=== PATIENT | male | born 1975 | race Caucasian/White ===

== ENCOUNTER → 2016-11-21 | Outpatient (CLI) | payer BC ==
[~2016-11-21] MED LIST: COSYNTROPIN 0.25 MG VIAL IVP ONE; SODIUM CHLORIDE 0.9% 250 ML in EMPTY BAG 1 BAG IV PRN; SODIUM CHLORIDE 0.9% 500 ML in EMPTY BAG 1 BAG IV PRN
[2016-11-21 08:27] VITALS: BP 128/60; PULSE 73; RESP 16; TEMP 98.8
== END | disposition home or self-care (01) ==
LOC: PROCWHC3 08:15
PROVIDERS: ATTEND Internal Medicine Endocrinology, Diabetes & Metabolism
DX: D35.2 Benign neoplasm of pituitary gland (principal)
CPT/HCPCS: 82533; 82024; 96374; 36415; J0834

== ENCOUNTER → 2017-05-20 | Outpatient (CLI) | payer BC ==
[2017-05-20 09:01] LABS: Prolactin 3.9 ng/mL (3.7-17.9)
== END | disposition home or self-care (01) ==
LOC: LABMAIN 07:48
PROVIDERS: ATTEND Internal Medicine Endocrinology, Diabetes & Metabolism
DX: D35.2 Benign neoplasm of pituitary gland (principal)
CPT/HCPCS: 36415; 82024; 82533; 84146; 84403

== ENCOUNTER 2022-03-14 05:39 | Emergency (ER) | payer BC ==
[2022-03-14 05:48] VITALS: RESP 18
[2022-03-14 06:09] LABS: Basophils % (A) 0 %; Eosinophils # (A) 0.1 k/uL (0-0.7); Eosinophils % (A) 2 %; HCT 51.8 % (39.0-53.0); HGB 18.2 gm/dL (13.0-17.5); Lymphocytes % (A) 20 %; MCH 31.1 pg (25.0-35.0); MCHC 35.1 g/dL (31.0-37.0); MCV 88.6 fL (80.0-100.0); Mean Platelet Volume 7.1; Monocytes # (A) 0.4 k/uL (0-1.0); Monocytes % (A) 7 %; Neutrophils # (A) 3.6 k/uL (1.3-7.7); Neutrophils % (A) 69 %; Platelet Count 223 k/uL (150-450); RBC 5.85 m/uL (4.30-5.90); WBC 5.2 k/uL (3.8-10.6)
[2022-03-14 06:17] LABS: INR 1.1 (<1.2); Partial Thromboplastin Time 25.4 sec (22.0-30.0); Prothrombin Time 11.3 sec (9.0-12.0)
--- NOTE | 2022-03-14 06:44 | ED ---
General Adult HPI - General Chief complaint: Syncope Stated complaint: Near syncope Time Seen by Provider: 03/14/22 06:13 Source: patient, EMS, RN notes reviewed Mode of arrival: EMS Limitations: no limitations - History of Present Illness Initial comments: This is a 46-year-old male presents emergency from via EMS with chief complaint dizziness, near syncope. Patient states he had an episode last Friday and one today approximately same time. Patient states he was driving started becoming very lightheaded, dizzy symptoms like this in a pass out. All over. Patient states symptoms seemed to last a long period of time isn't limited to headache, blurred vision or any focal weakness at this time no chest pain shortness of breath he states he was nausea without vomiting. 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 Patient denies any current complaints of symptoms have resolved - Related Data Home Medications Medication Instructions Recorded Confirmed Cabergoline 0.25 mg PO SUWE 03/14/22 03/14/22 Allergies Allergy/AdvReac Type Severity Reaction Status Date / Time No Known Allergies Allergy Verified 03/14/22 06:53 Review of Systems ROS Statement: Those systems with pertinent positive or pertinent negative responses have been documented in the HPI. ROS Other: All systems not noted in ROS Statement are negative. Past Medical History Past Medical History: GERD/Reflux Additional Past Medical History / Comment(s): IRREGULAR HEART BEAT WHEN CHILD, UTI History of Any Multi-Drug Resistant Organisms: None Reported Past Surgical History: Adenoidectomy, Tonsillectomy Additional Past Surgical History / Comment(s): cyst on the neck, TUBES IN EARS Past Anesthesia/Blood Transfusion Reactions: Motion Sickness Past Psychological History: No Psychological Hx Reported Smoking Status: Never smoker Past Alcohol Use History: Rare Past Drug Use History: None Reported General Exam General appearance: alert, in no apparent distress Head exam: Present: atraumatic, normocephalic, normal inspection Eye exam: Present: normal appearance, PERRL, EOMI. Absent: scleral icterus, conjunctival injection, periorbital swelling ENT exam: Present: normal exam, mucous membranes moist Neck exam: Present: normal inspection, full ROM. Absent: tenderness, meningismu s, lymphadenopathy Respiratory exam: Present: normal lung sounds bilaterally. Absent: respiratory distress, wheezes, rales, rhonchi, stridor Cardiovascular Exam: Present: regular rate, normal rhythm, normal heart sounds. Absent: systolic murmur, diastolic murmur, rubs, gallop, clicks Extremities exam: Present: normal inspection, full ROM. Absent: tenderness Back exam: Present: full ROM. Absent: tenderness Neurological exam: Present: alert, oriented X3, CN II-XII intact, reflexes normal, other (Finger to nose intact). Absent: motor sensory deficit Skin exam: Present: warm, dry, intact, normal color. Absent: rash Course Vital Signs 03/14/22 05:41 Temperature 98.4 F Pulse Rate 74 Respiratory 18 Rate Blood Pressure 110/86 O2 Sat by Pulse 99 Oximetry EKG Findings - EKG Comments: EKG Findings:: EKG performed at 5:45 sinus rhythm with a rate of 72 SD 165 QRS 83 QT/ QTC 371/395 Medical Decision Making - Medical Decision Making Patient had episode of dizziness, near syncope. Patient has seen PCP, neurology evaluated from with no specific findings. Patient is a symptomatically this time. Patient will be discharged with follow-up and return parameters were discussed. - Lab Data Result diagrams: 03/14/22 06:00 03/14/22 06:00 Lab Results 03/14/22 03/14/22 03/14/22 Range/Units 06:00 06:00 06:00 WBC 5.2 (3.8-10.6) k/uL RBC 5.85 (4.30-5.90) m/uL Hgb 18.2 H (13.0-17.5) gm/dL Hct 51.8 (39.0-53.0) % MCV 88.6 (80.0-100.0) fL MCH 31.1 (25.0-35.0) pg MCHC 35.1 (31.0-37.0) g/dL RDW 13.0 (11.5-15.5) % Plt Count 223 (150-450) k/uL MPV 7.1 Neutrophils % 69 % Lymphocytes % 20 % Monocytes % 7 % Eosinophils % 2 % Basophils % 0 % Neutrophils # 3.6 (1.3-7.7) k/uL Lymphocytes # 1.0 (1.0-4.8) k/uL Monocytes # 0.4 (0-1.0) k/uL Eosinophils # 0.1 (0-0.7) k/uL Basophils # 0.0 (0-0.2) k/uL PT 11.3 (9.0-12.0) sec INR 1.1 (<1.2) APTT 25.4 (22.0-30.0) sec Sodium 139 (137-145) mmol/L Potassium 4.4 (3.5-5.1) mmol/L Chloride 99 (98-107) mmol/L Carbon Dioxide 31 H (22-30) mmol/L Anion Gap 9 mmol/L BUN 15 (9-20) mg/dL Creatinine 1.21 (0.66-1.25) mg/dL Est GFR (CKD-EPI)AfAm 83 (>60 ml/min/1.73 sqM) Est GFR (CKD-EPI)NonAf 72 (>60 ml/min/1.73 sqM) Glucose 121 H (74-99) mg/dL Calcium 9.4 (8.4-10.2) mg/dL Total Bilirubin 1.1 (0.2-1.3) mg/dL AST 31 (17-59) U/L ALT 27 (4-49) U/L Alkaline Phosphatase 36 L (38-126) U/L Troponin I (0.000-0.034) ng/mL Total Protein 7.6 (6.3-8.2) g/dL Albumin 4.5 (3.5-5.0) g/dL 03/14/22 Range/Units 06:00 WBC (3.8-10.6) k/uL RBC (4.30-5.90) m/uL Hgb (13.0-17.5) gm/dL Hct (39.0-53.0) % MCV (80.0-100.0) fL MCH (25.0-35.0) pg MCHC (31.0-37.0) g/dL RDW (11.5-15.5) % Plt Count (150-450) k/uL MPV Neutrophils % % Lymphocytes % % Monocytes % % Eosinophils % % Basophils % % Neutrophils # (1.3-7.7) k/uL Lymphocytes # (1.0-4.8) k/uL Monocytes # (0-1.0) k/uL Eosinophils # (0-0.7) k/uL Basophils # (0-0.2) k/uL PT (9.0-12.0) sec INR (<1.2) APTT (22.0-30.0) sec Sodium (137-145) mmol/L Potassium (3.5-5.1) mmol/L Chloride (98-107) mmol/L Carbon Dioxide (22-30) mmol/L Anion Gap mmol/L BUN (9-20) mg/dL Creatinine (0.66-1.25) mg/dL Est GFR (CKD-EPI)AfAm (>60 ml/min/1.73 sqM) Est GFR (CKD-EPI)NonAf (>60 ml/min/1.73 sqM) Glucose (74-99) mg/dL Calcium (8.4-10.2) mg/dL Total Bilirubin (0.2-1.3) mg/dL AST (17-59) U/L ALT (4-49) U/L Alkaline Phosphatase (38-126) U/L Troponin I <0.012 (0.000-0.034) ng/mL Total Protein (6.3-8.2) g/dL Albumin (3.5-5.0) g/dL Disposition Clinical Impression: Near syncope, Dizziness Disposition: HOME SELF-CARE Condition: Stable Instructions (If sedation given, give patient instructions): Near Syncope (ED) Additional Instructions: Please return to the Emergency Department if symptoms worsen or any other concerns. Is patient prescribed a controlled substance at d/c from ED?: No Referrals: Armen Langford MD [Primary Care Provider] - 1-2 days Time of Disposition: 07:45
[2022-03-14 07:03] LABS: Albumin 4.5 g/dL (3.5-5.0); Calcium 9.4 mg/dL (8.4-10.2); Potassium 4.4 mmol/L (3.5-5.1); Total Bilirubin 1.1 mg/dL (0.2-1.3); Total Protein 7.6 g/dL (6.3-8.2)
[2022-03-14 08:05] VITALS: BP 119/91; PULSE 65; TEMP 97.9
== END 2022-03-14 08:05 | disposition home or self-care (01) ==
LOC: EC 05:39
DX: R55 Syncope and collapse (principal); R42 Dizziness and giddiness; K21.9 Gastro-esophageal reflux disease without esophagitis; Z87.442 Personal history of urinary calculi
CPT/HCPCS: 36415; 80053; 84484; 85025; 85610; 85730; 93005; 99284

== ENCOUNTER 2022-03-14 22:36 | Emergency (ER) | payer BC ==
[2022-03-14 23:52] VITALS: TEMP 97.7
[2022-03-15 00:30] LABS: Basophils % (A) 0 %; Eosinophils # (A) 0.1 k/uL (0-0.7); Eosinophils % (A) 2 %; HCT 54.4 % (39.0-53.0); HGB 18.3 gm/dL (13.0-17.5); Lymphocytes # (A) 1.2 k/uL (1.0-4.8); Lymphocytes % (A) 16 %; MCH 29.7 pg (25.0-35.0); MCHC 33.6 g/dL (31.0-37.0); MCV 88.5 fL (80.0-100.0); Mean Platelet Volume 6.9; Monocytes # (A) 0.6 k/uL (0-1.0); Monocytes % (A) 7 %; Neutrophils # (A) 5.5 k/uL (1.3-7.7); Neutrophils % (A) 74 %; Platelet Count 217 k/uL (150-450); RBC 6.15 m/uL (4.30-5.90); RDW 12.3 % (11.5-15.5); WBC 7.5 k/uL (3.8-10.6)
--- NOTE | 2022-03-15 00:37 | CT ---
EXAMINATION TYPE: CT brain wo con DATE OF EXAM: 03/15/2022 COMPARISON: None HISTORY: Syncope, dizziness CT DLP: 1060.40 mGycm Automated exposure control for dose reduction was used. Ventricles have normal size. There is no mass effect or midline shift. There is no sign of intracrani al hemorrhage. Calvarium is intact. There is normal aeration of the mastoid sinuses. IMPRESSION: Negative unenhanced head CT scan.
[2022-03-15 00:40] LABS: ALT 28 U/L (4-49); AST 30 U/L (17-59); African American GFR (CKD) >90 (>60 ml/min/1.73 sqM); Alkaline Phosphatase 40 U/L (38-126); Anion Gap 9 mmol/L; Blood Urea Nitrogen 19 mg/dL (9-20); Calcium 9.8 mg/dL (8.4-10.2); Carbon Dioxide 25 mmol/L (22-30); Chloride 103 mmol/L (98-107); Glucose 115 mg/dL (74-99); Non-African American GFR(CKD) 82 (>60 ml/min/1.73 sqM); Potassium 4.1 mmol/L (3.5-5.1); Sodium 137 mmol/L (137-145); Total Bilirubin 0.9 mg/dL (0.2-1.3); Total Protein 8.3 g/dL (6.3-8.2)
[2022-03-15 00:52] LABS: INR 1.1 (<1.2); Prothrombin Time 11.6 sec (9.0-12.0)
[2022-03-15] MEDS ORDERED: ONDANSETRON 4 MG TAB PO STA (01:39)
[2022-03-15] MEDS ORDERED: MECLIZINE 12.5 MG TAB PO STA (01:39)
--- NOTE | 2022-03-15 01:39 | ED ---
Dizziness HPI - General Chief Complaint: Dizziness Stated Complaint: Dizziness/Blacked out Time Seen by Provider: 03/15/22 01:23 Source: patient Mode of arrival: ambulatory Limitations: no limitations - History of Present Illness Initial Comments: This is a 46-year-old male DF for evaluation of dizziness intermittent dizziness lightheadedness room spinning and off balance. Patient feels weak and his feet. Patient has no trauma no fevers no headache. No travel history or sick contacts. Patient has had prior history of dizziness and symptoms of this ongoing or recurrent for about 3-4 weeks now. Patient denies any other neurological complaints MD Complaint: dizziness, lightheadedness, near syncope -: hour(s) Timing: sudden onset Description: lightheadedness, near-syncope History of Same: Yes History of Trauma: No Severity: severe Improves With: nothing Worsens With: nothing Associated Symptoms: syncope, weakness - Related Data Home Medications Medication Instructions Recorded Confirmed Cabergoline 0.25 mg PO SUWE 03/14/22 03/14/22 Previous Rx's Medication Instructions Recorded Meclizine [Antivert] 25 mg PO TID #15 tab 03/15/22 Allergies Allergy/AdvReac Type Severity Reaction Status Date / Time No Known Allergies Allergy Verified 03/14/22 06:53 Review of Systems ROS Statement: Those systems with pertinent positive or pertinent negative responses have been documented in the HPI. ROS Other: All systems not noted in ROS Statement are negative. Past Medical History Past Medical History: GERD/Reflux Additional Past Medical History / Comment(s): IRREGULAR HEART BEAT WHEN CHILD, UTI History of Any Multi-Drug Resistant Organisms: None Reported Past Surgical History: Adenoidectomy, Tonsillectomy Additional Past Surgical History / Comment(s): cyst on the neck, TUBES IN EARS Past Anesthesia/Blood Transfusion Reactions: Motion Sickness Past Psychological History: No Psychological Hx Reported Smoking Status: Never smoker Past Alcohol Use History: Rare Past Drug Use History: None Reported General Exam Limitations: no limitations General appearance: alert, in no apparent distress Head exam: Present: atraumatic, normocephalic, normal inspection Eye exam: Present: normal appearance, PERRL, EOMI. Absent: scleral icterus, co njunctival injection, periorbital swelling ENT exam: Present: normal exam, mucous membranes moist Neck exam: Present: normal inspection. Absent: tenderness, meningismus, lymphadenopathy Respiratory exam: Present: normal lung sounds bilaterally. Absent: respiratory distress, wheezes, rales, rhonchi, stridor Cardiovascular Exam: Present: regular rate, normal rhythm, normal heart sounds. Absent: systolic murmur, diastolic murmur, rubs, gallop, clicks GI/Abdominal exam: Present: soft, normal bowel sounds. Absent: distended, tenderness, guarding, rebound, rigid Extremities exam: Present: normal inspection, full ROM, normal capillary refill. Absent: tenderness, pedal edema, joint swelling, calf tenderness Back exam: Present: normal inspection Neurological exam: Present: alert, oriented X3, CN II-XII intact Psychiatric exam: Present: normal affect, normal mood Skin exam: Present: warm, dry, intact, normal color. 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] Pulse Rate [ 84 Standing Work Order Detailer ] Pulse Rate [ 74 Supine Work Order Detailer] Respiratory 16 18 18 Rate Blood Pressure 133/94 128/92 Blood Pressure 137/95 [Right Arm Sitting] Blood Pressure 134/97 [Right Arm Standing] Blood Pressure 132/86 [Right Arm Supine] O2 Sat by Pulse 99 100 Oximetry - Reevaluation(s) Reevaluation #1: 03/15/22 Medical record is reviewed Patient symptoms are improving here in the emergency department Patient is informed of results and questions have been answered EKG Findings - EKG Comments: EKG Findings:: EKG is sinus rhythm 66 NH 169 QRS 90 QTC 402 Medical Decision Making - Medical Decision Making Auty 6 male with vertiginous symptoms. Patient vertiginous symptoms are improved here in the area is able to ambulate given medication and exercise for home. Patient can be discharged - Lab Data Result diagrams: 03/14/22 23:56 03/14/22 23:56 Lab Results 03/14/22 03/14/22 03/14/22 Range/Units 23:56 23:56 23:56 WBC 7.5 (3.8-10.6) k/uL RBC 6.15 H (4.30-5.90) m/uL Hgb 18.3 H (13.0-17.5) gm/dL Hct 54.4 H (39.0-53.0) % MCV 88.5 (80.0-100.0) fL MCH 29.7 (25.0-35.0) pg MCHC 33.6 (31.0-37.0) g/dL RDW 12.3 (11.5-15.5) % Plt Count 217 (150-450) k/uL MPV 6.9 Neutrophils % 74 % Lymphocytes % 16 % Monocytes % 7 % Eosinophils % 2 % Basophils % 0 % Neutrophils # 5.5 (1.3-7.7) k/uL Lymphocytes # 1.2 (1.0-4.8) k/uL Monocytes # 0.6 (0-1.0) k/uL Eosinophils # 0.1 (0-0.7) k/uL Basophils # 0.0 (0-0.2) k/uL PT 11.6 (9.0-12.0) sec INR 1.1 (<1.2) Sodium 137 (137-145) mmol/L Potassium 4.1 (3.5-5.1) mmol/L Chloride 103 (98-107) mmol/L Carbon Dioxide 25 (22-30) mmol/L Anion Gap 9 mmol/L BUN 19 (9-20) mg/dL Creatinine 1.09 (0.66-1.25) mg/dL Est GFR (CKD-EPI)AfAm >90 (>60 ml/min/1.73 sqM) Est GFR (CKD-EPI)NonAf 82 (>60 ml/min/1.73 sqM) Glucose 115 H (74-99) mg/dL Calcium 9.8 (8.4-10.2) mg/dL Total Bilirubin 0.9 (0.2-1.3) mg/dL AST 30 (17-59) U/L ALT 28 (4-49) U/L Alkaline Phosphatase 40 (38-126) U/L Troponin I (0.000-0.034) ng/mL Total Protein 8.3 H (6.3-8.2) g/dL Albumin 5.0 (3.5-5.0) g/dL 03/14/22 Range/Units 23:56 WBC (3.8-10.6) k/uL RBC (4.30-5.90) m/uL Hgb (13.0-17.5) gm/dL Hct (39.0-53.0) % MCV (80.0-100.0) fL MCH (25.0-35.0) pg MCHC (31.0-37.0) g/dL RDW (11.5-15.5) % Plt Count (150-450) k/uL MPV Neutrophils % % Lymphocytes % % Monocytes % % Eosinophils % % Basophils % % Neutrophils # (1.3-7.7) k/uL Lymphocytes # (1.0-4.8) k/uL Monocytes # (0-1.0) k/uL Eosinophils # (0-0.7) k/uL Basophils # (0-0.2) k/uL PT (9.0-12.0) sec INR (<1.2) Sodium (137-145) mmol/L Potassium (3.5-5.1) mmol/L Chloride (98-107) mmol/L Carbon Dioxide (22-30) mmol/L Anion Gap mmol/L BUN (9-20) mg/dL Creatinine (0.66-1.25) mg/dL Est GFR (CKD-EPI)AfAm (>60 ml/min/1.73 sqM) Est GFR (CKD-EPI)NonAf (>60 ml/min/1.73 sqM) Glucose (74-99) mg/dL Calcium (8.4-10.2) mg/dL Total Bilirubin (0.2-1.3) mg/dL AST (17-59) U/L ALT (4-49) U/L Alkaline Phosphatase (38-126) U/L Troponin I <0.012 (0.000-0.034) ng/mL Total Protein (6.3-8.2) g/dL Albumin (3.5-5.0) g/dL Disposition Clinical Impression: Benign paroxysmal positional vertigo, Dizziness Disposition: HOME SELF-CARE Condition: Good Instructions (If sedation given, give patient instructions): Vertigo (ED) Prescriptions: Meclizine [Antivert] 25 mg PO TID #15 tab Is patient prescribed a controlled substance at d/c from ED?: No Referrals: Armen Langford MD [Primary Care Provider] - 1-2 days
[2022-03-15 02:09] VITALS: RESP 18
[2022-03-15 02:10] VITALS: BP 128/92; PULSE 79
== END 2022-03-15 02:10 | disposition home or self-care (01) ==
LOC: EC 22:36
DX: H81.10 Benign paroxysmal vertigo, unspecified ear (principal)
CPT/HCPCS: 36415; 70450; 80053; 84484; 85025; 85610; 93005; 99285

== ENCOUNTER 2022-06-14 08:29 | Observation (INO) | payer BC ==
--- NOTE | 2022-06-14 08:42 | ED ---
General Adult HPI - General Stated complaint: Chest Pain Time Seen by Provider: 06/14/22 08:31 Source: patient, EMS Mode of arrival: EMS Limitations: no limitations - History of Present Illness Initial comments: Dictation was produced using [employer] dictation software. please excuse any grammatical, word or spelling errors. Chief Complaint: 46-year-old male presents emergency Department with episode of chest pain History of Present Illness: She is a 46-year-old male he denies any past medical history. He states that today he was sitting in his room when all of a sudden he developed chest pressure. He states he radiated to his left shoulder associated with diaphoresis and lightheadedness. Patient states he has had some unexplained lightheadedness over several occasions throughout the last several weeks. Patient denies any history of cardiac disease however does report strong family history on his maternal side there is states that several individuals on his mother's side has had cardiac disease. Patient called EMS was given aspirin and nitroglycerin with improvement of his symptoms. At the bedside he reports no symptoms. The ROS documented in this emergency department record has been reviewed and confirmed by me. Those systems with pertinent positive or negative responses have been documented in the HPI. All other systems are other negative and/or noncontributory. PHYSICAL EXAM: General Impression: Alert and oriented x3, not in acute distress HEENT: Normocephalic atraumatic, extra-ocular movements intact, pupils equal and reactive to light bilaterally, mucous membranes moist. Cardiovascular: Heart regular rate and rhythm Chest: Able to complete full sentences, no retractions, no tachypnea Abdomen: abdomen soft, non-tender, non-distended, no organomegaly Musculoskeletal: Pulses present and equal in all extremities, no peripheral edema Motor: no focal deficits noted Neurological: CN II-XII grossly intact, no focal motor or sensory deficits noted Skin: Intact with no visualized rashes Psych: Normal affect and mood ED course: 46-year-old male presents emergency department with chest pain concerning for acute coronary syndrome. He is a symptomatic at the bedside. Physical examination is benign. Patient does have high risk features. Vital signs upon arrival are within acceptable limits. EKG shows no signs of ischemia or infarction. Laboratory evaluation obtained. CBC, coag panel, metabolic panel is within acceptable limits. Abdominal labs negative. Troponin is normal. Chest x-ray is unremarkable though radiology makes comment of left hilar prominence which is likely related to radiology technique. Patient reverted bedside at 955 and found to be in stable medical condition. Given patient's presentation there is concern for acute coronary syndrome. Patient will be admitted with consultation to cardiology. EKG interpretation: Ventricular rate 67, sinus rhythm,. 160, QS 85, QTC 392. No FL prolongation, no QTC prolongation, no ST or T-wave changes noted. Isolated T-wave inversion in lead 3. No other acute findings. Overall this EKG is nonspecific. - Related Data Home Medications Medication Instructions Recorded Confirmed Cabergoline 0.25 mg PO DIRECTED 03/14/22 06/14/22 Aspirin EC [Ecotrin Low Dose] 81 mg PO DAILY 06/14/22 06/14/22 Butalb/APAP/Caff 50-325-40Mg 1 tab PO BID PRN 06/14/22 06/14/22 [Fioricet 50-325-40] Cetirizine HCl [Zyrtec] 10 mg PO DAILY 06/14/22 06/14/22 Allergies Allergy/AdvReac Type Severity Reaction Status Date / Time No Known Allergies Allergy Verified 06/14/22 09:42 Review of Systems ROS Statement: Those systems with pertinent positive or pertinent negative responses have been documented in the HPI. ROS Other: All systems not noted in ROS Statement are negative. Past Medical History Past Medical History: GERD/Reflux Additional Past Medical History / Comment(s): IRREGULAR HEART BEAT WHEN CHILD, UTI History of Any Multi-Drug Resistant Organisms: None Reported Past Surgical History: Adenoidectomy, Tonsillectomy Additional Past Surgical History / Comment(s): cyst on the neck, TUBES IN EARS Past Anesthesia/Blood Transfusion Reactions: Motion Sickness Past Psychological History: No Psychological Hx Reported Smoking Status: Never smoker Past Alcohol Use History: None Reported Past Drug Use History: None Reported General Exam Limitations: no limitations Course Vital Signs 06/14/22 06/14/22 08:30 09:50 Temperature 98.3 F Pulse Rate 70 73 Respiratory 16 15 Rate Blood Pressure 104/77 O2 Sat by Pulse 99 97 Oximetry Medical Decision Making - Lab Data Result diagrams: 06/14/22 08:43 06/14/22 08:43 Lab Results 06/14/22 06/14/22 06/14/22 Range/Units 08:43 08:43 08:43 WBC 3.6 L (3.8-10.6) k/uL RBC 4.95 (4.30-5.90) m/uL Hgb 15.3 (13.0-17.5) gm/dL Hct 44.0 (39.0-53.0) % MCV 89.0 (80.0-100.0) fL MCH 30.9 (25.0-35.0) pg MCHC 34.7 (31.0-37.0) g/dL RDW 12.8 (11.5-15.5) % Plt Count 204 (150-450) k/uL MPV 7.2 Neutrophils % 68 % Lymphocytes % 20 % Monocytes % 7 % Eosinophils % 2 % Basophils % 0 % Neutrophils # 2.5 (1.3-7.7) k/uL Lymphocytes # 0.7 L (1.0-4.8) k/uL Monocytes # 0.3 (0-1.0) k/uL Eosinophils # 0.1 (0-0.7) k/uL Basophils # 0.0 (0-0.2) k/uL PT 11.1 (9.0-12.0) sec INR 1.0 (<1.2) APTT 24.8 (22.0-30.0) sec Sodium 138 (137-145) mmol/L Potassium 4.3 (3.5-5.1) mmol/L Chloride 105 (98-107) mmol/L Carbon Dioxide 27 (22-30) mmol/L Anion Gap 6 mmol/L BUN 15 (9-20) mg/dL Creatinine 1.00 (0.66-1.25) mg/dL Est GFR (CKD-EPI)AfAm >90 (>60 ml/min/1.73 sqM) Est GFR (CKD-EPI)NonAf >90 (>60 ml/min/1.73 sqM) Glucose 120 H (74-99) mg/dL Calcium 8.4 (8.4-10.2) mg/dL Magnesium 2.0 (1.6-2.3) mg/dL Total Bilirubin 1.0 (0.2-1.3) mg/dL AST 30 (17-59) U/L ALT 24 (4-49) U/L Alkaline Phosphatase 33 L (38-126) U/L Troponin I (0.000-0.034) ng/mL Total Protein 6.6 (6.3-8.2) g/dL Albumin 4.1 (3.5-5.0) g/dL 06/14/22 Range/Units 08:43 WBC (3.8-10.6) k/uL RBC (4.30-5.90) m/uL Hgb (13.0-17.5) gm/dL Hct (39.0-53.0) % MCV (80.0-100.0) fL MCH (25.0-35.0) pg MCHC (31.0-37.0) g/dL RDW (11.5-15.5) % Plt Count (150-450) k/uL MPV Neutrophils % % Lymphocytes % % Monocytes % % Eosinophils % % Basophils % % Neutrophils # (1.3-7.7) k/uL Lymphocytes # (1.0-4.8) k/uL Monocytes # (0-1.0) k/uL Eosinophils # (0-0.7) k/uL Basophils # (0-0.2) k/uL PT (9.0-12.0) sec INR (<1.2) APTT (22.0-30.0) sec Sodium (137-145) mmol/L Potassium (3.5-5.1) mmol/L Chloride (98-107) mmol/L Carbon Dioxide (22-30) mmol/L Anion Gap mmol/L BUN (9-20) mg/dL Creatinine (0.66-1.25) mg/dL Est GFR (CKD-EPI)AfAm (>60 ml/min/1.73 sqM) Est GFR (CKD-EPI)NonAf (>60 ml/min/1.73 sqM) Glucose (74-99) mg/dL Calcium (8.4-10.2) mg/dL Magnesium (1.6-2.3) mg/dL Total Bilirubin (0.2-1.3) mg/dL AST (17-59) U/L ALT (4-49) U/L Alkaline Phosphatase (38-126) U/L Troponin I <0.012 (0.000-0.034) ng/mL Total Protein (6.3-8.2) g/dL Albumin (3.5-5.0) g/dL Disposition Clinical Impression: Chest pain Disposition: ADMITTED IP TO THIS HOSP Condition: Fair Referrals: Armen Langford MD [Primary Care Provider] - 1-2 days Decision Time: 09:55
[2022-06-14 09:05] LABS: Basophils % (A) 0 %; Eosinophils # (A) 0.1 k/uL (0-0.7); Eosinophils % (A) 2 %; HGB 15.3 gm/dL (13.0-17.5); Lymphocytes # (A) 0.7 k/uL (1.0-4.8); Lymphocytes % (A) 20 %; MCH 30.9 pg (25.0-35.0); MCHC 34.7 g/dL (31.0-37.0); Mean Platelet Volume 7.2; Monocytes # (A) 0.3 k/uL (0-1.0); Monocytes % (A) 7 %; Neutrophils # (A) 2.5 k/uL (1.3-7.7); Neutrophils % (A) 68 %; Platelet Count 204 k/uL (150-450); RBC 4.95 m/uL (4.30-5.90); RDW 12.8 % (11.5-15.5); WBC 3.6 k/uL (3.8-10.6)
--- NOTE | 2022-06-14 09:08 | XR ---
EXAMINATION TYPE: XR chest 2V DATE OF EXAM: 06/14/2022 COMPARISON: NONE HISTORY: Chest pain TECHNIQUE: Frontal and lateral views of the chest are obtained. FINDINGS: There is no focal air space opacity, pleural effusion, or pneumothorax seen. The cardiac silhouette size is within normal limits. Patient is rotated. There is thoracic spondylosis. Mild prom inence of left hilum. The osseous structures are intact. IMPRESSION: Left hilar prominence may be related to technique, rotation. Consider follow-up.
[2022-06-14 09:15] LABS: ALT 24 U/L (4-49); African American GFR (CKD) >90 (>60 ml/min/1.73 sqM); Albumin 4.1 g/dL (3.5-5.0); Anion Gap 6 mmol/L; Blood Urea Nitrogen 15 mg/dL (9-20); Calcium 8.4 mg/dL (8.4-10.2); Carbon Dioxide 27 mmol/L (22-30); Chloride 105 mmol/L (98-107); Glucose 120 mg/dL (74-99); Non-African American GFR(CKD) >90 (>60 ml/min/1.73 sqM); Partial Thromboplastin Time 24.8 sec (22.0-30.0); Prothrombin Time 11.1 sec (9.0-12.0); Sodium 138 mmol/L (137-145); Total Protein 6.6 g/dL (6.3-8.2)
[2022-06-14 09:20] LABS: AST 30 U/L (17-59); Alkaline Phosphatase 33 U/L (38-126); Potassium 4.3 mmol/L (3.5-5.1)
[2022-06-14] MEDS ORDERED: NITROGLYCERIN SL TABS 0.4 MG TAB SUBLINGUAL PRN (09:52)
[2022-06-14] MEDS ORDERED: BUTALB/APAP/CAFF 50-325-40MG TAB PO PRN (12:42)
--- NOTE | 2022-06-14 12:44 | P.HPIM ---
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 Patient states that the pain was pressure-like and located in the middle of his chest with an intensity of 6 out of 10 and radiated across his chest. Patient states that the pain was associated with lightheadedness and diaphoresis. The pain continued until EMS c phoebe and gave him nitroglycerin after which his chest pain did improve. Patient currently complaining of some chest discomfort. In the ED patient had 2 troponins are negative and EKG showed no ischemic changes. Patient was admitted for chest pain evaluation and cardiology consult. Review of Systems 10 ROS reviewed and are negative except as noted in HPI Past Medical History Past Medical History: GERD/Reflux Additional Past Medical History / Comment(s): IRREGULAR HEART BEAT WHEN CHILD, UTI, pituitary cyst History of Any Multi-Drug Resistant Organisms: None Reported Past Surgical History: Adenoidectomy, Tonsillectomy Additional Past Surgical History / Comment(s): cyst on the neck, TUBES IN EARS, fatty cyst on right arm Past Anesthesia/Blood Transfusion Reactions: Motion Sickness Past Psychological History: No Psychological Hx Reported Additional Psychological History / Comment(s): PAST HX ANXIETY. The patient is and lives in the family home with his . 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 He still he has been a bit fatigued. He is denying any significant new changes of activity, such as new fitness activities. He has not been riding a bike. And has not been running. His is his only sexual partner. He is lifelong nonsmoker. Denies tobacco and alcohol use. Denies occasional drug use. No experience. He has no significant travel. There are 2 dogs in the home with them. He has no children, only exposures to the fifth graders he takes care of at school. In the past he was somewhat of an athlete playing basketball and baseball but it's been several years. Smoking Status: Never smoker Past Alcohol Use History: None Reported Past Drug Use History: None Reported Medications and Allergies Home Medications Medication Instructions Recorded Confirmed Type Cabergoline 0.25 mg PO DIRECTED 03/14/22 06/14/22 History Aspirin EC [Ecotrin Low Dose] 81 mg PO DAILY 06/14/22 06/14/22 History Butalb/APAP/Caff 50-325-40Mg 1 tab PO BID PRN 06/14/22 06/14/22 History [Fioricet 50-325-40] Cetirizine HCl [Zyrtec] 10 mg PO DAILY 06/14/22 06/14/22 History Allergies Allergy/AdvReac Type Severity Reaction Status Date / Time No Known Allergies Allergy Verified 06/14/22 09:42 Physical Exam Osteopathic Statement: *. No significant issues noted on an osteopathic structural exam other than those noted in the History and Physical/Consult. Vitals: Vital Signs Temp Pulse Pulse Resp BP BP Pulse Ox 06/14/22 10:50 97.8 F 70 16 101/72 98 06/14/22 09:50 73 15 104/77 97 06/14/22 08:30 98.3 F 70 16 99 Intake and Output 06/13/22 06/14/22 06/14/22 22:59 06:59 14:59 Other: Weight 79.379 kg Atypical chest pain -Troponin negative 2 -EKG with no ischemic changes -Resume aspirin -Check echocardiogram -Consult cardiology Suspect patient has a history of prolactinoma -Resume Cabergoline Suspect recent diagnosis of MS -Patient states that he follows up with a neurologist in the local community and recently completed a steroid course. DVT prophylaxis: Encourage early ambulation Results CBC & Chem 7: 06/14/22 08:43 06/14/22 08:43 Labs: Abnormal Lab Results - Last 24 Hours (Table) 06/14/22 06/14/22 Range/Units 08:43 08:43 WBC 3.6 L (3.8-10.6) k/uL Lymphocytes # 0.7 L (1.0-4.8) k/uL Glucose 120 H (74-99) mg/dL Alkaline Phosphatase 33 L (38-126) U/L Thrombosis Risk Factor Assmnt - Choose All That Apply Any of the Below Risk Factors Present?: No Other Risk Factors: No Other congenital or acquired thrombophilia - If yes, enter type in comment: No Thrombosis Risk Factor Assessment Level: Very Low Risk
[2022-06-14] MEDS ORDERED: ACETAMINOPHEN TAB 325 MG TAB PO PRN (21:53)
[2022-06-15 07:17] VITALS: RESP 18
--- NOTE | 2022-06-15 07:55 | CA ---
Transthoracic Echo Report Name: Joey Tan Age: 46 Gender: M : 1975 Exam Date: 06/14/2022 13:56 Exam Location: [facility] Ht (in): 68 Wt (lb): 175 Ordering Physician: Ruddy Colbert MD Attending/Referring Phys: Audit Mgr Mary Ann Carrion RDCS Procedure CPT: Indications: Chest Pain Cardiac Hx: Technical Quality: Fair Contrast 1: Total Dose (mL): Contrast 2: Total Dose (mL): MEASUREMENTS (Male / Female) Normal Values 2D ECHO LV Diastolic Diameter PLAX 4.1 cm 4.2 - 5.9 / 3.9 - 5.3 cm LV Systolic Diameter PLAX 2.3 cm IVS Diastolic Thickness 1.1 cm 0.6 - 1.0 / 0.6 - 0.9 cm LVPW Diastolic Thickness 1.1 cm 0.6 - 1.0 / 0.6 - 0.9 cm LV Relative Wall Thickness 0.5 RV Internal Dim ED PLAX 3.2 cm LA Volume 29.0 cm??? 18 - 58 / 22 - 52 cm??? M-MODE Aortic Root Diameter MM 2.6 cm LA Systolic Diameter MM 2.8 cm LA Ao Ratio MM 1.0 AV Cusp Separation MM 1.6 cm DOPPLER AV Peak Velocity 211.6 cm/s AV Peak Gradient 17.9 mmHg AV Mean Velocity 134.9 cm/s AV Mean Gradient 8.8 mmHg AV Velocity Time Integral 37.9 cm LVOT Peak Velocity 146.4 cm/s LVOT Peak Gradient 8.6 mmHg MV Area PHT 3.0 cm??? Mitral E Point Velocity 87.5 cm/s Mitral A Point Velocity 78.8 cm/s Mitral E to A Ratio 1.1 MV Deceleration Time 255.8 ms MV E' Velocity 10.9 cm/s Mitral E to MV E' Ratio 8.0 TR Peak Velocity 219.0 cm/s TR Peak Gradient 19.2 mmHg Right Ventricular Systolic Press 23.5 mmHg FINDINGS Left Ventricle Normal Left ventricular size, wall thickness, systolic function with no obvious regional wall motion abnormalities. Normal Left ventricular diastolic filling pattern. Left ventricular ejection fraction is estimated at 55-60 %. Right Ventricle Normal right ventricular size and function. Right ventricular systolic pressure within normal limits. Right Atrium Normal right atrial size. Left Atrium Normal left atrial size. No evidence for an atrial septal defect. Mitral Valve Structurally normal mitral valve. No mitral stenosis, regurgitation or prolapse. Aortic Valve Can not rule out bicuspid aortic valve. Borderline aortic stenosis, AV mean PG 9 mmHg. No aortic regurgitation. Tricuspid Valve Structurally normal tricuspid valve. Mild tricuspid regurgitation. Pulmonic Valve Trace pulmonic regurgitation. Pericardium No pericardial effusion. Aorta CONCLUSIONS Normal left ventricular ejection fraction 55-60% Likely bicuspid aortic valve with trace to mild aortic stenosis, no aortic regurgitation Mild tricuspid regurgitation No pericardial effusion Previewed by: Dr. Carson Parker DO (Electronically Signed) Final Date: 15 June 2022 07:54
[2022-06-15] MEDS ORDERED: SODIUM CHLORIDE 0.9% 1,000 ML IV SCH (08:45)
--- NOTE | 2022-06-15 08:45 | P.CRDCN ---
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 He has not been seen by freight loading supervisor previously. Unfortunately he has been having issues with feeling lightheaded and dizzy in the last few months. He states he is feeling very well previous to that however has been very limited not doing much of any exertion as he has been having constant issues with lightheadedness. He was evaluated over last 3 months however no significant reason for his lightheadedness. He states this can occur when he is sitting as well as when he is standing. He has been less active as he feels if he overdoes it he may get lightheaded however no clear correlation. He had a more significant episode of chest pain and palpitations last night which lasted for proximally 40 minutes and then resolved on its own. He did feel lightheaded with this episode. He was not doing anything out of the ordinary prior to it. He was diagnosed with bicuspid aortic valve as a child however has not had any follow-up in the last 20 years. He does have a strong family history of grandparents with CAD and bypass. 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 No association with diet or sugar levels. He has had a few episodes of lightheadedness while in the [facility] and monitor has shown only sinus rhythm. REVIEW OF SYSTEMS At the time of my exam: CONSTITUTIONAL: Denies fever or chills. CARDIOVASCULAR: +chest pain, +shortness of breath, no orthopnea, PND, + palpitations. RESPIRATORY: Denies cough. GASTROINTESTINAL: Denies abdominal pain, diarrhea, constipation, nausea or vomiting. MUSCULOSKELETAL: Denies myalgias. NEUROLOGIC: Denies numbness, tingling or weakness. ENDOCRINE: Denies fatigue, weight change, polydipsia or polyurina. GENITOURINARY: Denies burning, hematuria or urgency with micturation. HEMATOLOGIC: Denies history of anemia or bleeding. PHYSICAL EXAMINATION Vital signs reviewed. CONSTITUTIONAL: No apparent distress. HEENT: Head is normocephalic. Pupils are equal, round. Sclerae anicteric. Mucous membranes of the mouth are moist. No JVD. No carotid bruit. CHEST EXAMINATION: Lungs are clear to auscultation. No chest wall tenderness is noted on palpation or with deep breathing. HEART EXAMINATION: Regular rate and rhythm. S1, S2 heard. +2/6 systolic murmur, no gallops or rub. ABDOMEN: Soft, nontender. Positive bowel sounds. EXTREMITIES: 2+ peripheral pulses, no lower extremity edema and no calf tenderness. NEUROLOGIC EXAMINATION: Patient is awake, alert and oriented x3. ASSESSMENT 1. Atypical chest pain 1, troponins negative 3, acute coronary syndrome ruled out 2. Episodes of lightheadedness may be more related to blood pressure, rule out adrenal insufficiency with additional history of pituitary mass 3. 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 Bicuspid aortic stenosis, mild by transthoracic echo and on auscultation 5. Family history of CAD 6. Palpitations, only sinus rhythm noted on monitor 7. Mild leukopenia PLAN Patient's chest pain is atypical however has been having significant episodes of lightheadedness over the last 3 months. Troponin is noted to be normal 3 and no significant ischemic changes noted on EKG. 2-D echo shows preserved left ventricular function and bicuspid valve however appears only mild and should not be causing any these symptoms. Symptoms of lightheadedness may be more related to hypotension and additional consideration of possible hormonal reasons with his pituitary mass. Check cortisols levels and may be component of adrenal insufficiency. Check orthostatic vitals. Trial of Florinef to see how patient feels. Check d-dimer for completeness and additionally CAT scan to rule out any significant cord Tatian or aortic aneurysm which may be associated with bicuspid valve. If workup unrevealing patient may be discharged home on Florinef with outpatient follow-up artery scheduled with cad drafter on Friday and with myself in approximately one week. Past Medical History Past Medical History: GERD/Reflux Additional Past Medical History / Comment(s): IRREGULAR HEART BEAT WHEN CHILD, UTI, pituitary cyst History of Any Multi-Drug Resistant Organisms: None Reported Past Surgical History: Adenoidectomy, Tonsillectomy Additional Past Surgical History / Comment(s): cyst on the neck, TUBES IN EARS, fatty cyst on right arm Past Anesthesia/Blood Transfusion Reactions: Motion Sickness Past Psychological History: No Psychological Hx Reported Additional Psychological History / Comment(s): PAST HX ANXIETY. The patient is and lives in the family home with his . 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 He still he has been a bit fatigued. He is denying any significant new changes of activity, such as new fitness activities. He has not been riding a bike. And has not been running. His is his only sexual partner. He is lifelong nonsmoker. Denies tobacco and alcohol use. Denies occasional drug use. No experience. He has no significant travel. There are 2 dogs in the home with them. He has no children, only exposures to the fifth graders he takes care of at school. In the past he was somewhat of an athlete playing basketball and baseball but it's been several years. Smoking Status: Never smoker Past Alcohol Use History: None Reported Past Drug Use History: None Reported Medications and Allergies Home Medications Medication Instructions Recorded Confirmed Type Cabergoline 0.25 mg PO DIRECTED 03/14/22 06/14/22 History Aspirin EC [Ecotrin Low Dose] 81 mg PO DAILY 06/14/22 06/14/22 History Butalb/APAP/Caff 50-325-40Mg 1 tab PO BID PRN 06/14/22 06/14/22 History [Fioricet 50-325-40] Cetirizine HCl [Zyrtec] 10 mg PO DAILY 06/14/22 06/14/22 History Allergies Allergy/AdvReac Type Severity Reaction Status Date / Time No Known Allergies Allergy Verified 06/14/22 09:42 Physical Exam Vitals: Vital Signs Temp Pulse Pulse Resp BP BP BP 06/15/22 07:00 97.9 F 54 L 18 100/59 06/15/22 03:51 65 16 06/15/22 02:36 97.7 F 65 16 109/73 06/14/22 19:06 98.3 F 61 16 109/70 06/14/22 15:00 98.3 F 76 18 102/65 06/14/22 10:50 97.8 F 70 16 101/72 06/14/22 09:50 73 15 104/77 Pulse Ox 06/15/22 07:00 95 06/15/22 03:51 06/15/22 02:36 96 06/14/22 19:06 96 06/14/22 15:00 96 06/14/22 10:50 98 06/14/22 09:50 97 Intake and Output 06/14/22 06/15/22 06/15/22 22:59 06:59 14:59 Intake Total 480 Balance 480 Intake: Oral 480 Other: Voiding Method Toilet Toilet # Voids 2 2 Results 06/14/22 08:43 06/14/22 08:43 Cardiac Enzymes 06/14/22 06/14/22 06/14/22 Range/Units 08:43 08:43 11:08 AST 30 (17-59) U/L Troponin I <0.012 <0.012 (0.000-0.034) ng/mL 06/14/22 Range/Units 14:41 AST (17-59) U/L Troponin I <0.012 (0.000-0.034) ng/mL Coagulation 06/14/22 Range/Units 08:43 PT 11.1 (9.0-12.0) sec APTT 24.8 (22.0-30.0) sec CBC 06/14/22 Range/Units 08:43 WBC 3.6 L (3.8-10.6) k/uL RBC 4.95 (4.30-5.90) m/uL Hgb 15.3 (13.0-17.5) gm/dL Hct 44.0 (39.0-53.0) % Plt Count 204 (150-450) k/uL Comprehensive Metabolic Panel 06/14/22 Range/Units 08:43 Sodium 138 (137-145) mmol/L Potassium 4.3 (3.5-5.1) mmol/L Chloride 105 (98-107) mmol/L Carbon Dioxide 27 (22-30) mmol/L BUN 15 (9-20) mg/dL Creatinine 1.00 (0.66-1.25) mg/dL Glucose 120 H (74-99) mg/dL Calcium 8.4 (8.4-10.2) mg/dL AST 30 (17-59) U/L ALT 24 (4-49) U/L Alkaline Phosphatase 33 L (38-126) U/L Total Protein 6.6 (6.3-8.2) g/dL Albumin 4.1 (3.5-5.0) g/dL Current Medications Generic Name Dose Route Start Last Admin Trade Name Freq PRN Reason Stop Dose Admin Acetaminophen 650 mg 06/14/22 21:53 06/14/22 22:04 Acetaminophen Tab 325 Mg Tab PO 650 mg Q6HR PRN Administration Fever and/ or Pain Acetaminophen/Butalbital/Caffeine 1 each 06/14/22 12:42 Butalb/Apap/Caff 50-325-40mg Tab PO BID PRN Migraine Headache Aspirin 81 mg 06/15/22 09:00 Aspirin 81 Mg PO DAILY EDWARD Fludrocortisone Acetate 0.1 mg 06/15/22 09:00 Fludrocortisone 0.1 Mg Tab PO DAILY EDWARD Loratadine 10 mg 06/15/22 09:00 Loratadine 10 Mg Tab PO DAILY EDWARD Nitroglycerin 0.4 mg 06/14/22 09:52 Nitroglycerin Sl Tabs 0.4 Mg Tab SUBLINGUAL Q5M PRN Chest Pain Non-Formulary Medication 0.25 mg 06/17/22 09:00 Cabergoline [Cabergoline] PO MoTh EDWARD Intake and Output 06/14/22 06/15/22 06/15/22 22:59 06:59 14:59 Intake Total 480 Balance 480 Intake: Oral 480 Other: Voiding Method Toilet Toilet # Voids 2 2 06/14/22 08:43 06/14/22 08:43
[2022-06-15] MEDS ORDERED: LORATADINE 10 MG TAB PO SCH (09:00)
[2022-06-15] MEDS ORDERED: ASPIRIN 325 MG TAB PO SCH (09:00)
[2022-06-15] MEDS ORDERED: FLUDROCORTISONE 0.1 MG TAB PO SCH (09:00)
[2022-06-15] MEDS ORDERED: ASPIRIN 81 MG PO SCH (09:00)
[2022-06-15 09:28] LABS: Chol/HDL Ratio 5.84 Ratio; LDL Cholesterol,Calculated 142.6 mg/dL (0.0-131.0); VLDL Calculation 19.02 mg/dL (5.00-40.00)
[2022-06-15] MEDS ORDERED: RX INFO: IV CONTRAST WAS GIVEN 1 EACH MISC MISCELLANE PRN (10:27)
[2022-06-15 14:04] VITALS: BP 106/70; TEMP 98.4
[2022-06-15] MEDS ORDERED: IBUPROFEN 800 MG TAB PO PRN (14:06)
[2022-06-15 14:16] VITALS: PULSE 65
--- NOTE | 2022-06-15 16:42 | CT ---
EXAMINATION TYPE: CT angio thor/abd pel aorta DATE OF EXAM: 06/15/2022 INDICATION: Chest pain, Dissection COMPARISON: None CT DLP: 974.4 mGycm CONTRAST: Performed without and with IV Contrast, patient injected with 100 mL of Isovue 370. TECHNIQUE: Axial images at 5 mm thick sections. Reconstructed images in the coronal plane. Delayed images through the kidneys. FINDINGS: CTA: There appears to be a three-vessel arch. The aorta at the level of the aortic arch is 2.4 cm. The aorta at the level of the main pulmonary art bryon is 3.2 cm. The aorta at the level of the aortic valve is 3.0 cm. The aorta at the diaphragm is 2. 2 cm. Celiac axis and superior mesenteric artery abnormal takeoff. The renal artery takeoff appears n ormal. Inferior mesenteric artery appears normal. The aortic bifurcation is normal. Common iliac karthik russ are patent. Internal and external iliac arteries are patent. Common femoral arteries are normal. No aortic dissection is identified. CT CHEST: Portion of the thyroid visualized is normal. No suspicious lung nodules or focal infiltrates are present. No enlarged mediastinal or hilar adenopathy is evident. The ascending aorta diameter at the level of the main pulmonary artery is 3.2 cm. The main pulmonary artery diameter at the bifurcation is 2.[address] ABDOMEN: Liver: Normal Spleen: Normal Pancreas: Normal Adrenal glands: The adrenal glands are normal. Gallbladder: Normal Kidneys: No masses are evident. No hydronephrosis is present. No cysts are present. Delayed images were obtained through the kidneys, which remain unremarkable. Aorta: Normal . Please see above CTA discussion. Inferior vena cava: Normal. CT PELVIS: Loops of bowel within the abdomen and pelvis are normal. The study is without contrast limiting b owel evaluation. Appendix: Normal as visualized. Urinary bladder: Normal. Genitourinary structures: Prostate calcifications are present. Osseous structures: No suspicious lytic or sclerotic lesions. IMPRESSIONS: 1. 1. No suspicious changes to suggest aortic dissection or aneurysm. 2. No suspicious abnormalities account for chest or back pain.
--- NOTE | 2022-06-15 16:51 | P.DS ---
Providers Date of admission: 06/14/22 09:52 Expected date of discharge: 06/15/22 Attending physician: Rudyd Colbert MD Consults: 06/14/22 09:52 Consult Physician Urgent Consulting Provider: Nicole Trujillo Consult Reason/Comments: chest pain Do you want consulting provider notified?: Yes Primary care physician: Armen Langford Hospital Course: Discharge Diagnosis: Chest pain, acute coronary event ruled out Dizziness/lightheadedness, cardiology starting patient on Florinef 0.1 mg daily. Bicuspid aortic stenosis Tricuspid regurgitation Pituitary mass, likely prolactinoma. Continue cabergoline. Reported recent diagnosis of MS, patient to continue to follow-up with his neurologist, Dr. Barrientos as discussed. 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 Patient states that the pain was pressure-like and located in the middle of his chest with an intensity of 6 out of 10 and radiated across his chest. Patient states that the pain was associated with lightheadedness and diaphoresis. The pain continued until EMS came and gave him nitroglycerin after which his chest pain did improve. Patient currently complaining of some chest discomfort. In the ED patient underwent full evaluation. CBC revealing leukopenia with WBC count 3.6 and CMP showing no significant abnormalities. Troponin negative at less than 0.012. EKG showing normal sinus rhythm at 67 bpm with no noted T-wave or ST abnormalities. Chest x-ray negative for acute cardiopulmonary process. Echocardiogram completed showing preserved EF of 55-60% with mild tricuspid regurgitation and a bicuspid aortic valve with trace to mild aortic stenosis with no aortic regurgitation. Patient underwent full evaluation by cardiology ruling out an acute coronary event. D-dimer was negative at 0.23. Cardiology recommending computed tomography scan of chest to rule out aortic aneurysm or dissection associated with bicuspid valve. CTA chest, abdomen, and pelvis was completed and was negative for acute process showing no suspicious changes to suggest aortic dissection or aneurysm and no suspicious abnormalities to account for chest or back pain. Orthostatic vitals remained negative. Cardiology recommending continuation of Florinef 0.1 mg daily and outpatient follow-up in their office next week. Patient is medically stable for discharge at this time and follow up outpatient with PCP in 1-2 days and cardiology next week. Physical examination: Patient seen and examined at bedside. Vital signs reviewed and stable. General: Nontoxic, no distress and appears stated age. Derm: Skin warm and dry, normal coloration for ethnicity. Head: Atraumatic, normocephalic and symmetric. Eyes: EOMs intact, no lid lag, and anicteric sclera Mouth: no lip lesions, mucus membranes moist Cardiovascular: regular rate and rhythm with normal S1S2, systolic murmur, positive posterior tibial pulses bilaterally, and cap refill < 2 seconds. Lungs: Respirations even, regular, and unlabored on room air. Lungs CTA bilaterally, no rhonchi, no rales, no wheezing, and no accessory muscle usage. Abdominal: soft, nontender to palpation, no guarding, no appreciable organomegaly Ext: ROM intact. No gross muscle atrophy, no edema, no contractures Neuro: Speech clear, face symmetrical and CN II-XII grossly intact with no noted focal neuro deficits Psych: Alert and oriented to person, place, time, and situation. Appropriate and pleasant affect. A total of 33 minutes of time were spent preparing this complex discharge summary. Pt was discharged on 06/15/22 at 4:45 PM. Patient Condition at Discharge: Stable Plan - Discharge Summary New Discharge Prescriptions: New Fludrocortisone [Florinef] 0.1 mg PO DAILY 30 Days #30 tab Continue Cabergoline 0.25 mg PO DIRECTED Cetirizine HCl [Zyrtec] 10 mg PO DAILY Butalb/APAP/Caff 50-325-40Mg [Fioricet 50-325-40] 1 tab PO BID PRN PRN Reason: Migraine Headache Aspirin EC [Ecotrin Low Dose] 81 mg PO DAILY Discharge Medication List Cabergoline 0.25 mg PO DIRECTED 03/14/22 [History] Aspirin EC [Ecotrin Low Dose] 81 mg PO DAILY 06/14/22 [History] Butalb/APAP/Caff 50-325-40Mg [Fioricet 50-325-40] 1 tab PO BID PRN 06/14/22 [History] Cetirizine HCl [Zyrtec] 10 mg PO DAILY 06/14/22 [History] Fludrocortisone [Florinef] 0.1 mg PO DAILY 30 Days #30 tab 06/15/22 [Rx] Follow up Appointment(s)/Referral(s): Armen Langford MD [Primary Care Provider] - 1-2 days Whitney Barrientos MD [Medical Doctor] - 1 Week Carson Parker DO [STAFF PHYSICIAN] - 1 Week Patient Instructions/Handouts: Chest Pain (DC) Activity/Diet/Wound Care/Special Instructions: Activity: As tolerated. Take breaks as needed. Diet: Heart healthy and carb consistent diet. Avoid salts, or foods with hidden salts such as canned or boxed foods and frozen dinners. Extra salt makes your heart work harder and traps the fluid in your body for longer. Special Instructions: Take all of your medications as directed and remember to keep all of your doctor's appointments and follow-up as needed. Thank you for allowing us to participate in your care, it was truly a pleasure having you for our patient!!! Discharge Disposition: HOME SELF-CARE
[2022-06-17] MEDS ORDERED: NON FORMULARY DRUG (Cabergoline [Cabergoline] 0.5 MG Tablet) PO SCH (09:00)
== END 2022-06-15 17:24 | disposition home or self-care (01) ==
LOC: EC 08:29 → 6NMEDSUR 09:52
PROVIDERS: ADMIT Internal Medicine; ATTEND Internal Medicine
DX: R07.89 Other chest pain (principal); R42 Dizziness and giddiness; I35.0 Nonrheumatic aortic (valve) stenosis; I07.1 Rheumatic tricuspid insufficiency; R22.0 Localized swelling, mass and lump, head; D72.819 Decreased white blood cell count, unspecified; M47.814 Spondylosis without myelopathy or radiculopathy, thoracic region; K21.9 Gastro-esophageal reflux disease without esophagitis; F41.9 Anxiety disorder, unspecified; Q23.1 Congenital insufficiency of aortic valve; Z82.49 Family history of ischemic heart disease and other diseases of the circulatory system; Z79.82 Long term (current) use of aspirin
CPT/HCPCS: 99285; 36415; 93005; 93306; 85379; 80061; 80053; 82533; 83735; 84484; 85025; 85610; 85730; 71046; 71275; 74174; G0378 ×2; Q9967

== ENCOUNTER 2022-06-24 14:23 | Emergency (ER) | payer BC ==
[2022-06-24 14:37] VITALS: RESP 18; TEMP 98.3
--- NOTE | 2022-06-24 14:54 | ED ---
General Adult HPI - General Chief complaint: Syncope Stated complaint: vertigo, chest pain Time Seen by Provider: 06/24/22 14:23 Source: patient, EMS, RN notes reviewed, old records reviewed Mode of arrival: EMS Limitations: no limitations - History of Present Illness Initial comments: This is a 46-year-old male who presents emergency Department with a 3-1/2 month history of near syncope vertigo and chest pain palpitations. Patient states today he was lying down he felt some weird sensation in both thighs he states then he felt his heart begin to race he took his pulse was 135 beats a minute. Patient states after that he thought he was going to pass out and this is what happened multiple times in the past. Patient states he also feels as though when he moves his head he is much more dizzy and feels like he might fall over. Patient states he has never fallen over and he has never passed out. Patient denies any recent fever chills or cough. Patient denies any head trauma recently. Patient states he is followed up with cardiology and neurology and he has had an MRI of his brain 3 months ago. Patient states she supposed to have a stress test in the upcoming days. Patient states he also was nauseous earlier but he is no longer nauseated now - Related Data Home Medications Medication Instructions Recorded Confirmed Cabergoline 0.25 mg PO DIRECTED 03/14/22 06/24/22 Aspirin EC [Ecotrin Low Dose] 81 mg PO DAILY 06/14/22 06/24/22 Butalb/APAP/Caff 50-325-40Mg 1 tab PO BID PRN 06/14/22 06/24/22 [Fioricet 50-325-40] Cetirizine HCl [Zyrtec] 10 mg PO DAILY 06/14/22 06/24/22 Hydrocortisone [Cortef] 10 mg PO DAILY@1400 06/24/22 06/24/22 Hydrocortisone [Cortef] 20 mg PO DAILY@0700 06/24/22 06/24/22 Allergies Allergy/AdvReac Type Severity Reaction Status Date / Time No Known Allergies Allergy Verified 06/24/22 16:56 Review of Systems ROS Statement: Those systems with pertinent positive or pertinent negative responses have been documented in the HPI. ROS Other: All systems not noted in ROS Statement are negative. Past Medical History Past Medical History: GERD/Reflux Additional Past Medical History / Comment(s): IRREGULAR HEART BEAT WHEN CHILD, UTI, pituitary cyst History of Any Multi-Drug Resistant Organisms: None Reported Past Surgical History: Adenoidectomy, Tonsillectomy Additional Past Surgical History / Comment(s): cyst on the neck, TUBES IN EARS, fatty cyst on right arm Past Anesthesia/Blood Transfusion Reactions: Motion Sickness Past Psychological History: No Psychological Hx Reported Additional Psychological History / Comment(s): PAST HX ANXIETY. The patient is and lives in the family home with his . 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 He still he has been a bit fatigued. He is denying any significant new changes of activity, such as new fitness activities. He has not been riding a bike. And has not been running. His is his only sexual partner. He is lifelong nonsmoker. Denies tobacco and alcohol use. Denies occasional drug use. No experience. He has no significant travel. There are 2 dogs in the home with them. He has no children, only exposures to the fifth graders he takes care of at school. In the past he was somewhat of an athlete playing basketball and baseball but it's been several years. Smoking Status: Never smoker Past Alcohol Use History: None Reported Past Drug Use History: None Reported General Exam - General Exam Comments Initial Comments: GENERAL: Patient is well-developed and well-nourished. Patient is nontoxic and well-hy drated and is in mild distress. ENT: Neck is soft and supple. No significant lymphadenopathy is noted. Oropharynx is clear. Moist mucous membranes. Neck has full range of motion without eliciting any pain. EYES: The sclera were anicteric and conjunctiva were pink and moist. Extraocular movements were intact and pupils were equal round and reactive to light. Eyelids were unremarkable. PULMONARY: Unlabored respirations. Good breath sounds bilaterally. No audible rales rhonchi or wheezing was noted. CARDIOVASCULAR: There is a regular rate and rhythm without any murmurs gallops or rubs. ABDOMEN: Soft and nontender with normal bowel sounds. SKIN: Skin is clear with no lesions or rashes and otherwise unremarkable. NEUROLOGIC: Patient is alert and oriented x3. Cranial nerves II through XII are grossly intact. Motor and sensory are also intact. Normal speech, volume and content. Symmetrical smile. Finger to nose testing is normal bilaterally MUSCULOSKELETAL: Normal extremities with adequate strength and full range of motion. LYMPHATICS: No significant lymphadenopathy is noted PSYCHIATRIC: Normal psychiatric evaluation. Limitations: no limitations Course Vital Signs 06/24/22 14:27 Temperature 98.3 F Pulse Rate 84 Respiratory 18 Rate Blood Pressure 110/93 O2 Sat by Pulse 98 Oximetry Medical Decision Making - Medical Decision Making EKG shows sinus rhythm at 79 bpm WV interval is 152 QRS is 89 Q-T intervals 356 QTC is 391. Patient's EKG shows no ST segment elevation or depression. CTA of the head and neck show no acute abnormality. Patient was feeling better the emergency department and he did have follow-up. - Lab Data Result diagrams: 06/24/22 15:05 06/24/22 15:05 Lab Results 06/24/22 06/24/22 06/24/22 Range/Units 14:58 15:05 15:05 WBC 5.3 (3.8-10.6) k/uL RBC 5.70 (4.30-5.90) m/uL Hgb 17.1 (13.0-17.5) gm/dL Hct 50.5 (39.0-53.0) % MCV 88.6 (80.0-100.0) fL MCH 29.9 (25.0-35.0) pg MCHC 33.8 (31.0-37.0) g/dL RDW 12.8 (11.5-15.5) % Plt Count 238 (150-450) k/uL MPV 7.0 Neutrophils % 73 % Lymphocytes % 17 % Monocytes % 7 % Eosinophils % 2 % Basophils % 0 % Neutrophils # 3.9 (1.3-7.7) k/uL Lymphocytes # 0.9 L (1.0-4.8) k/uL Monocytes # 0.4 (0-1.0) k/uL Eosinophils # 0.1 (0-0.7) k/uL Basophils # 0.0 (0-0.2) k/uL PT 11.9 (9.0-12.0) sec INR 1.1 (<1.2) APTT 25.0 (22.0-30.0) sec Sodium (137-145) mmol/L Potassium (3.5-5.1) mmol/L Chloride (98-107) mmol/L Carbon Dioxide (22-30) mmol/L Anion Gap mmol/L BUN (9-20) mg/dL Creatinine (0.66-1.25) mg/dL Est GFR (CKD-EPI)AfAm (>60 ml/min/1.73 sqM) Est GFR (CKD-EPI)NonAf (>60 ml/min/1.73 sqM) Glucose (74-99) mg/dL Calcium (8.4-10.2) mg/dL Magnesium (1.6-2.3) mg/dL Total Bilirubin (0.2-1.3) mg/dL AST (17-59) U/L ALT (4-49) U/L Alkaline Phosphatase (38-126) U/L Troponin I (0.000-0.034) ng/mL Total Protein (6.3-8.2) g/dL Albumin (3.5-5.0) g/dL TSH (0.465-4.680) mIU/L Coronavirus (PCR) Not Detected (Not Detectd) 06/24/22 06/24/22 Range/Units 15:05 15:05 WBC (3.8-10.6) k/uL RBC (4.30-5.90) m/uL Hgb (13.0-17.5) gm/dL Hct (39.0-53.0) % MCV (80.0-100.0) fL MCH (25.0-35.0) pg MCHC (31.0-37.0) g/dL RDW (11.5-15.5) % Plt Count (150-450) k/uL MPV Neutrophils % % Lymphocytes % % Monocytes % % Eosinophils % % Basophils % % Neutrophils # (1.3-7.7) k/uL Lymphocytes # (1.0-4.8) k/uL Monocytes # (0-1.0) k/uL Eosinophils # (0-0.7) k/uL Basophils # (0-0.2) k/uL PT (9.0-12.0) sec INR (<1.2) APTT (22.0-30.0) sec Sodium 140 (137-145) mmol/L Potassium 3.8 (3.5-5.1) mmol/L Chloride 102 (98-107) mmol/L Carbon Dioxide 30 (22-30) mmol/L Anion Gap 8 mmol/L BUN 17 (9-20) mg/dL Creatinine 0.88 (0.66-1.25) mg/dL Est GFR (CKD-EPI)AfAm >90 (>60 ml/min/1.73 sqM) Est GFR (CKD-EPI)NonAf >90 (>60 ml/min/1.73 sqM) Glucose 136 H (74-99) mg/dL Calcium 9.4 (8.4-10.2) mg/dL Magnesium 2.2 (1.6-2.3) mg/dL Total Bilirubin 0.8 (0.2-1.3) mg/dL AST 25 (17-59) U/L ALT 22 (4-49) U/L Alkaline Phosphatase 36 L (38-126) U/L Troponin I <0.012 (0.000-0.034) ng/mL Total Protein 7.1 (6.3-8.2) g/dL Albumin 4.6 (3.5-5.0) g/dL TSH 0.719 (0.465-4.680) mIU/L Coronavirus (PCR) (Not Detectd) Disposition Clinical Impression: Near syncope, Palpitations Disposition: HOME SELF-CARE Condition: Good Instructions (If sedation given, give patient instructions): Near Syncope (ED) Is patient prescribed a controlled substance at d/c from ED?: No Referrals: Armen Langford MD [Primary Care Provider] - 1-2 days Time of Disposition: 17:22
[2022-06-24 15:20] LABS: Basophils % (A) 0 %; Eosinophils # (A) 0.1 k/uL (0-0.7); Eosinophils % (A) 2 %; HCT 50.5 % (39.0-53.0); HGB 17.1 gm/dL (13.0-17.5); Lymphocytes # (A) 0.9 k/uL (1.0-4.8); Lymphocytes % (A) 17 %; MCH 29.9 pg (25.0-35.0); MCHC 33.8 g/dL (31.0-37.0); MCV 88.6 fL (80.0-100.0); Monocytes # (A) 0.4 k/uL (0-1.0); Monocytes % (A) 7 %; Neutrophils # (A) 3.9 k/uL (1.3-7.7); Neutrophils % (A) 73 %; Platelet Count 238 k/uL (150-450); RDW 12.8 % (11.5-15.5); WBC 5.3 k/uL (3.8-10.6)
[2022-06-24 15:24] LABS: INR 1.1 (<1.2); Prothrombin Time 11.9 sec (9.0-12.0)
[2022-06-24 15:29] LABS: ALT 22 U/L (4-49); AST 25 U/L (17-59); African American GFR (CKD) >90 (>60 ml/min/1.73 sqM); Albumin 4.6 g/dL (3.5-5.0); Alkaline Phosphatase 36 U/L (38-126); Anion Gap 8 mmol/L; Blood Urea Nitrogen 17 mg/dL (9-20); Calcium 9.4 mg/dL (8.4-10.2); Carbon Dioxide 30 mmol/L (22-30); Chloride 102 mmol/L (98-107); Glucose 136 mg/dL (74-99); Magnesium 2.2 mg/dL (1.6-2.3); Non-African American GFR(CKD) >90 (>60 ml/min/1.73 sqM); Potassium 3.8 mmol/L (3.5-5.1); Sodium 140 mmol/L (137-145); Total Bilirubin 0.8 mg/dL (0.2-1.3); Total Protein 7.1 g/dL (6.3-8.2)
--- NOTE | 2022-06-24 15:55 | XR ---
EXAMINATION TYPE: XR chest 2V DATE OF EXAM: 06/24/2022 COMPARISON: 06/14/2022 TECHNIQUE: PA and lateral views submitted. HISTORY: Chest pain FINDINGS: The lungs are clear and there is no pneumothorax, pleural effusion, or focal pneumonia. Heart size normal. No overt failure. IMPRESSION: 1. No acute process.
--- NOTE | 2022-06-24 16:22 | CT ---
EXAMINATION TYPE: CT angio head neck CT DLP: 514.2 mGycm, Automated exposure control for dose reduction was used. DATE OF EXAM: 06/24/2022 3:57 PM COMPARISON: CT brain 03/15/2022. CLINICAL INDICATION:Male, 46 years old with history of Near-syncope, vertigo; TECHNIQUE: Axially acquired helical CT angiogram of the head and neck was obtained with contrast util izing 65 cc of Isovue-370 administered intravenously. Axial images are supplemented with 3D reconstru ctions which were post-processed at an independent workstation. NASCET criteria used. FINDINGS: CTA HEAD: No evidence of acute intracranial hemorrhage, mass effect, or midline shift. The ventricles, sulci, a nd cisterns are unremarkable. The visualized portions of the internal carotid arteries, middle cerebral arteries, anterior cerebral arteries, and posterior cerebral arteries are patent. The basilar and vertebral arteries are patent. CTA NECK: Right Carotid System: The common carotid artery and external carotid artery are patent. The carotid bifurcation demonstrate s no evidence of hemodynamically significant stenosis. The remaining portions of the internal carotid artery demonstrate normal size without significant narrowing. Left Carotid System: The common carotid artery and external carotid artery are patent. The carotid bifurcation demonstrate s no evidence of hemodynamically significant stenosis. The remaining portions of the internal carotid artery demonstrate normal size without significant narrowing. Vertebral arteries are patent without evidence hemodynamically significant stenosis. There is a three-vessel aortic arch. The origins of the great vessels are patent. No evidence of hemo dynamically significant stenosis. IMPRESSION: 1. No evidence of dissection of the cervical internal carotid arteries or vertebral arteries or any e vidence of significant stenosis at the carotid bifurcations. 2. No evidence of high-grade stenosis or intracranial aneurysm.
[2022-06-24 17:44] VITALS: BP 112/60; PULSE 65
== END 2022-06-24 17:44 | disposition home or self-care (01) ==
LOC: EC 14:23
DX: R55 Syncope and collapse (principal); R00.2 Palpitations; R07.9 Chest pain, unspecified; R42 Dizziness and giddiness; Z20.822 Contact with and (suspected) exposure to COVID-19; Z79.82 Long term (current) use of aspirin; Z79.899 Other long term (current) drug therapy
CPT/HCPCS: 36415; 93005; 80053; 84443; 83735; 84484; 85025; 85610; 85730; 86140; 87635; 71046; 70496; 70498; 99285; 96374; J3360; Q9967

== ENCOUNTER 2022-06-26 07:29 | Emergency (ER) | payer BC ==
[2022-06-26 07:39] VITALS: TEMP 98.2
--- NOTE | 2022-06-26 08:31 | ED ---
General Adult HPI - General Chief complaint: Recheck/Abnormal Lab/Rx Stated complaint: revisit- hypertension, lightheaded Time Seen by Provider: 06/26/22 08:09 Source: patient, RN notes reviewed Mode of arrival: ambulatory Limitations: no limitations - History of Present Illness Initial comments: Patient is a pleasant 46-year-old male presenting to the emergency department with episodes of lightheadedness. Symptoms have been occurring over the past s everal days. Patient states when he checks his blood pressure at home as high. Patient states when he is checked at the doctor's visits normal. 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 Patient did feel lightheaded at that time. Patient did have another episode of lightheadedness in the emergency department. These episodes usually only lasts a couple of minutes. No weakness. No chest pain. - Related Data Home Medications Medication Instructions Recorded Confirmed Cabergoline 0.25 mg PO SA 03/14/22 06/26/22 Aspirin EC [Ecotrin Low Dose] 81 mg PO DAILY 06/14/22 06/26/22 Butalb/APAP/Caff 50-325-40Mg 1 tab PO BID PRN 06/14/22 06/26/22 [Fioricet 50-325-40] Cetirizine HCl [Zyrtec] 10 mg PO DAILY 06/14/22 06/26/22 Hydrocortisone [Cortef] 10 mg PO DAILY@1400 06/24/22 06/26/22 Hydrocortisone [Cortef] 20 mg PO DAILY@0700 06/24/22 06/26/22 Ibuprofen [Motrin Ib] 800 mg PO Q8H PRN 06/26/22 06/26/22 Allergies Allergy/AdvReac Type Severity Reaction Status Date / Time No Known Allergies Allergy Verified 06/26/22 11:38 Review of Systems ROS Statement: Those systems with pertinent positive or pertinent negative responses have been documented in the HPI. ROS Other: All systems not noted in ROS Statement are negative. Constitutional: Denies: fever Eyes: Denies: eye pain ENT: Denies: ear pain Respiratory: Denies: cough Cardiovascular: Reports: palpitations. Denies: chest pain Gastrointestinal: Denies: abdominal pain Genitourinary: Denies: dysuria Musculoskeletal: Denies: back pain Skin: Denies: rash Neurological: Denies: headache, weakness, confusion Past Medical History Past Medical History: GERD/Reflux Additional Past Medical History / Comment(s): IRREGULAR HEART BEAT WHEN CHILD, UTI, pituitary cyst History of Any Multi-Drug Resistant Organisms: None Reported Past Surgical History: Adenoidectomy, Tonsillectomy Additional Past Surgical History / Comment(s): cyst on the neck, TUBES IN EARS, fatty cyst on right arm Past Anesthesia/Blood Transfusion Reactions: Motion Sickness Past Psychological History: No Psychological Hx Reported Smoking Status: Never smoker Past Alcohol Use History: None Reported Past Drug Use History: None Reported General Exam Limitations: no limitations General appearance: alert, in no apparent distress Head exam: Present: normocephalic Eye exam: Present: normal appearance ENT exam: Present: normal oropharynx Neck exam: Present: normal inspection Respiratory exam: Present: normal lung sounds bilaterally Cardiovascular Exam: Present: regular rate, normal rhythm Expanded Peripheral pulses: 2+: Radial (R), Radial (L), Posterior Tibialis (R), Posterior Tibialis (L) GI/Abdominal exam: Present: soft. Absent: tenderness Extremities exam: Present: normal inspection. Absent: pedal edema, calf tenderness Neurological exam: Present: alert, oriented X3, CN II-XII intact. Absent: motor sensory deficit Psychiatric exam: Present: normal affect, normal mood Skin exam: Present: normal color Course Vital Signs 06/26/22 07:36 Temperature 98.2 F Pulse Rate 77 Respiratory 20 Rate Blood Pressure 102/72 O2 Sat by Pulse 100 Oximetry EKG Findings - EKG Comments: EKG Findings:: Sinus rhythm rate 81. MN 157. QRS 88. QT 380. QTC 417. Normal axis. Normal QRS. No acute ST change. Medical Decision Making - Medical Decision Making Patient reevaluated. Blood pressure stable. Patient updated on results and need for follow-up. Patient admits to being under stress recently and is receptive to a dose of benzodiazepine. Patient is not driving. - Lab Data Result diagrams: 06/26/22 09:16 06/26/22 09:16 Lab Results 06/26/22 06/26/22 06/26/22 Range/Units 09:16 09:16 09:16 WBC 5.1 (3.8-10.6) k/uL RBC 6.05 H (4.30-5.90) m/uL Hgb 18.0 H (13.0-17.5) gm/dL Hct 53.1 H (39.0-53.0) % MCV 87.7 (80.0-100.0) fL MCH 29.7 (25.0-35.0) pg MCHC 33.8 (31.0-37.0) g/dL RDW 12.4 (11.5-15.5) % Plt Count 227 (150-450) k/uL MPV 6.9 Neutrophils % 73 % Lymphocytes % 15 % Monocytes % 8 % Eosinophils % 2 % Basophils % 1 % Neutrophils # 3.8 (1.3-7.7) k/uL Lymphocytes # 0.8 L (1.0-4.8) k/uL Monocytes # 0.4 (0-1.0) k/uL Eosinophils # 0.1 (0-0.7) k/uL Basophils # 0.0 (0-0.2) k/uL PT 11.8 (9.0-12.0) sec INR 1.1 (<1.2) APTT 25.3 (22.0-30.0) sec D-Dimer 0.26 (<0.60) mg/L FEU Sodium 138 (137-145) mmol/L Potassium 4.3 (3.5-5.1) mmol/L Chloride 96 L (98-107) mmol/L Carbon Dioxide 27 (22-30) mmol/L Anion Gap 15 mmol/L BUN 19 (9-20) mg/dL Creatinine 1.04 (0.66-1.25) mg/dL Est GFR (CKD-EPI)AfAm >90 (>60 ml/min/1.73 sqM) Est GFR (CKD-EPI)NonAf 87 (>60 ml/min/1.73 sqM) Glucose 116 H (74-99) mg/dL Calcium 9.7 (8.4-10.2) mg/dL Magnesium 2.0 (1.6-2.3) mg/dL Total Bilirubin 0.9 (0.2-1.3) mg/dL AST 25 (17-59) U/L ALT 20 (4-49) U/L Alkaline Phosphatase 39 (38-126) U/L Troponin I (0.000-0.034) ng/mL NT-Pro-B Natriuret Pep pg/mL Total Protein 7.6 (6.3-8.2) g/dL Albumin 4.8 (3.5-5.0) g/dL TSH 0.732 (0.465-4.680) mIU/L Free T4 1.61 (0.78-2.19) ng/dL Free T3 pg/mL 3.5 (2.8-5.3) pg/ml 06/26/22 06/26/22 Range/Units 09:16 09:16 WBC (3.8-10.6) k/uL RBC (4.30-5.90) m/uL Hgb (13.0-17.5) gm/dL Hct (39.0-53.0) % MCV (80.0-100.0) fL MCH (25.0-35.0) pg MCHC (31.0-37.0) g/dL RDW (11.5-15.5) % Plt Count (150-450) k/uL MPV Neutrophils % % Lymphocytes % % Monocytes % % Eosinophils % % Basophils % % Neutrophils # (1.3-7.7) k/uL Lymphocytes # (1.0-4.8) k/uL Monocytes # (0-1.0) k/uL Eosinophils # (0-0.7) k/uL Basophils # (0-0.2) k/uL PT (9.0-12.0) sec INR (<1.2) APTT (22.0-30.0) sec D-Dimer (<0.60) mg/L FEU Sodium (137-145) mmol/L Potassium (3.5-5.1) mmol/L Chloride (98-107) mmol/L Carbon Dioxide (22-30) mmol/L Anion Gap mmol/L BUN (9-20) mg/dL Creatinine (0.66-1.25) mg/dL Est GFR (CKD-EPI)AfAm (>60 ml/min/1.73 sqM) Est GFR (CKD-EPI)NonAf (>60 ml/min/1.73 sqM) Glucose (74-99) mg/dL Calcium (8.4-10.2) mg/dL Magnesium (1.6-2.3) mg/dL Total Bilirubin (0.2-1.3) mg/dL AST (17-59) U/L ALT (4-49) U/L Alkaline Phosphatase (38-126) U/L Troponin I <0.012 (0.000-0.034) ng/mL NT-Pro-B Natriuret Pep <11 pg/mL Total Protein (6.3-8.2) g/dL Albumin (3.5-5.0) g/dL TSH (0.465-4.680) mIU/L Free T4 (0.78-2.19) ng/dL Free T3 pg/mL (2.8-5.3) pg/ml - Radiology Data Radiology results: image reviewed (Chest x-ray shows no acute process) Disposition Clinical Impression: Lightheadedness, Hypertension Disposition: HOME SELF-CARE Condition: Stable Instructions (If sedation given, give patient instructions): Hypertension (ED), Lightheadedness (ED) Additional Instructions: Please follow-up to primary care physician in the next day or 2 for recheck. Return for uncontrolled blood pressure, weakness, worsening or change in symptoms or any other concerns. Is patient prescribed a controlled substance at d/c from ED?: No Referrals: Armen Langford MD [Primary Care Provider] - 1-2 days Time of Disposition: 11:44
[2022-06-26 09:27] LABS: Basophils % (A) 1 %; Eosinophils # (A) 0.1 k/uL (0-0.7); Eosinophils % (A) 2 %; HCT 53.1 % (39.0-53.0); Lymphocytes # (A) 0.8 k/uL (1.0-4.8); Lymphocytes % (A) 15 %; MCH 29.7 pg (25.0-35.0); MCHC 33.8 g/dL (31.0-37.0); MCV 87.7 fL (80.0-100.0); Mean Platelet Volume 6.9; Monocytes # (A) 0.4 k/uL (0-1.0); Monocytes % (A) 8 %; Neutrophils # (A) 3.8 k/uL (1.3-7.7); Neutrophils % (A) 73 %; Platelet Count 227 k/uL (150-450); RBC 6.05 m/uL (4.30-5.90); RDW 12.4 % (11.5-15.5); WBC 5.1 k/uL (3.8-10.6)
[2022-06-26 09:37] LABS: ALT 20 U/L (4-49); AST 25 U/L (17-59); African American GFR (CKD) >90 (>60 ml/min/1.73 sqM); Albumin 4.8 g/dL (3.5-5.0); Alkaline Phosphatase 39 U/L (38-126); Anion Gap 15 mmol/L; Blood Urea Nitrogen 19 mg/dL (9-20); Calcium 9.7 mg/dL (8.4-10.2); Carbon Dioxide 27 mmol/L (22-30); Chloride 96 mmol/L (98-107); Glucose 116 mg/dL (74-99); Non-African American GFR(CKD) 87 (>60 ml/min/1.73 sqM); Potassium 4.3 mmol/L (3.5-5.1); Sodium 138 mmol/L (137-145); Total Bilirubin 0.9 mg/dL (0.2-1.3); Total Protein 7.6 g/dL (6.3-8.2)
[2022-06-26 09:45] LABS: INR 1.1 (<1.2); Partial Thromboplastin Time 25.3 sec (22.0-30.0); Prothrombin Time 11.8 sec (9.0-12.0)
[2022-06-26 09:53] LABS: T4, Free (Free Thyroxine) 1.61 ng/dL (0.78-2.19)
--- NOTE | 2022-06-26 10:01 | XR ---
EXAMINATION TYPE: XR chest 2V DATE OF EXAM: 06/26/2022 COMPARISON: 06/24/2022 INDICATION: Weakness TECHNIQUE: Frontal and lateral views of the chest are obtained. FINDINGS: The heart size is normal. The pulmonary vasculature is normal. The lungs are clear. IMPRESSION: 1. No acute pulmonary process.
[2022-06-26] MEDS ORDERED: LORazepam 1 MG TAB PO STA (11:43)
[2022-06-26 13:15] VITALS: BP 121/81; PULSE 78; RESP 18
== END 2022-06-26 13:08 | disposition home or self-care (01) ==
LOC: EC 07:29
DX: I10 Essential (primary) hypertension (principal); R42 Dizziness and giddiness; K21.9 Gastro-esophageal reflux disease without esophagitis; Z79.899 Other long term (current) drug therapy; Z79.52 Long term (current) use of systemic steroids
CPT/HCPCS: 36415; 71046; 80053; 83735; 83880; 84439; 84443; 84481; 84484; 85025; 85379; 85610; 85730; 93005; 99284

== ENCOUNTER 2022-06-29 19:05 | Observation (INO) | payer BC ==
--- NOTE | 2022-06-29 20:11 | ED ---
General Adult HPI - General Source: patient, RN notes reviewed, old records reviewed Mode of arrival: ambulatory Limitations: no limitations - History of Present Illness -: month(s) (4) Location: chest Severity scale (1-10): 5 Associated Symptoms: other (Dizziness arm leg numbness and hypertension) <Rigoberto Ware - Last Filed: 06/30/22 01:31> <MikeLinda Macy - Last Filed: 06/30/22 13:02> - General Chief complaint: Chest Pain Stated complaint: chest pain, side pain Time Seen by Provider: 06/29/22 19:44 - History of Present Illness Initial comments: This is a well-appearing anxious 46-year-old male, complaining of chest pain with intermittent arm and leg numbness and intermittent dizziness with spikes of hypertension for the past 4 months. Patient has been seen in the hospital multiple times for these similar complaints. He has been referred to [facility] which he states has an appointment coming up, endocrinology which he has an MRI scheduled, and a stress test scheduled on . Patient has had a CT angiogram on June 24 that was negative. He has had an echocardi ogram this year. Patient states that he checks his blood pressure 6 times a day and he has noticed spikes in his blood pressure as high as 198/128. Patient states that his symptoms do resolve and his blood pressure does normalize however he is concerned that he may related frequent spikes in blood pressure. (Rigoberto Ware) - Related Data Home Medications Medication Instructions Recorded Confirmed Cabergoline 0.25 mg PO SA 03/14/22 06/29/22 Aspirin EC [Ecotrin Low Dose] 81 mg PO DAILY 06/14/22 06/29/22 Butalb/APAP/Caff 50-325-40Mg 1 tab PO BID PRN 06/14/22 06/29/22 [Fioricet 50-325-40] Cetirizine HCl [Zyrtec] 10 mg PO DAILY 06/14/22 06/29/22 Hydrocortisone [Cortef] 10 mg PO DAILY@1400 06/24/22 06/29/22 Hydrocortisone [Cortef] 20 mg PO DAILY@0700 06/24/22 06/29/22 Ibuprofen [Motrin Ib] 800 mg PO Q8H PRN 06/26/22 06/29/22 Allergies Allergy/AdvReac Type Severity Reaction Status Date / Time No Known Allergies Allergy Verified 06/29/22 21:10 Review of Systems ROS Other: All systems not noted in ROS Statement are negative. <Rigoberto Ware - Last Filed: 06/30/22 01:31> ROS Other: All systems not noted in ROS Statement are negative. <Linda Mckeon Macy - Last Filed: 06/30/22 13:02> ROS Statement: Those systems with pertinent positive or pertinent negative responses have been documented in the HPI. Past Medical History Past Medical History: GERD/Reflux Additional Past Medical History / Comment(s): IRREGULAR HEART BEAT WHEN CHILD, UTI, pituitary cyst History of Any Multi-Drug Resistant Organisms: None Reported Past Surgical History: Adenoidectomy, Tonsillectomy Additional Past Surgical History / Comment(s): cyst on the neck, TUBES IN EARS, fatty cyst on right arm Past Anesthesia/Blood Transfusion Reactions: Motion Sickness Past Psychological History: No Psychological Hx Reported Smoking Status: Never smoker Past Alcohol Use History: None Reported Past Drug Use History: None Reported - Past Family History Father Family Medical History: Chest Pain / Angina <Rigoberto Ware - Last Filed: 06/30/22 01:31> General Exam Limitations: no limitations General appearance: alert, in no apparent distress Head exam: Present: atraumatic Eye exam: Present: normal appearance. Absent: scleral icterus, conjunctival injection ENT exam: Present: mucous membranes moist Neck exam: Present: full ROM. Absent: meningismus Respiratory exam: Absent: respiratory distress, accessory muscle use Cardiovascular Exam: Present: regular rate, normal rhythm Extremities exam: Present: normal inspection, full ROM, normal capillary refill. Absent: tenderness, pedal edema Neurological exam: Present: alert, oriented X3 Psychiatric exam: Present: normal affect, normal mood, anxious Skin exam: Present: warm, dry, normal color. 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 ] Respiratory 18 18 21 Rate Blood Pressure 137/83 132/92 Blood Pressure 101/77 [Right Arm] O2 Sat by Pulse 97 98 Oximetry 06/30/22 06/30/22 06/30/22 02:00 07:38 09:07 Temperature 97.8 F 97.5 F L Pulse Rate Pulse Rate [ 63 61 Structural Steel Erector ] Respiratory 17 16 Rate Blood Pressure Blood Pressure 94/62 105/78 [Right Arm] O2 Sat by Pulse 97 97 97 Oximetry Medical Decision Making - Lab Data Result diagrams: 06/29/22 19:11 06/29/22 19:11 <Rigoberto Ware - Last Filed: 06/30/22 01:31> - Lab Data Result diagrams: 06/29/22 19:11 06/29/22 19:11 <Linda Mckeon - Last Filed: 06/30/22 13:02> - Medical Decision Making Patient presents with intermittent chest pain, bilateral extremity numbness and spikes in his blood pressure over the past 4 months. He has been seen multiple times in the emergency room for these symptoms. He does have an appointment with [facility] for a nerve block, endocrinology is to schedule an MRI for him, and he has a stress test on . Patient states he checks his blood pressure 6 times a day and he has noticed spikes in his blood pressure and is very concerned. I did explain to patient that follow up with the specialist is his best plan of care however he is very concerned and wants to be admitted to the hospital. Case discussed with Dr. Mckeon who is agreeable to admit patient. The patient will be placed in observation for his recurring chest pain for possible cardiac catheterization. Patient is agreeable to this plan of care. (Rigoberto Ware) - Lab Data Lab Results 06/29/22 06/29/22 06/29/22 Range/Units 19:11 19:11 19:11 WBC 7.3 (3.8-10.6) k/uL RBC 5.61 (4.30-5.90) m/uL Hgb 16.7 (13.0-17.5) gm/dL Hct 49.4 (39.0-53.0) % MCV 88.0 (80.0-100.0) fL MCH 29.8 (25.0-35.0) pg MCHC 33.9 (31.0-37.0) g/dL RDW 12.8 (11.5-15.5) % Plt Count 210 (150-450) k/uL MPV 7.2 Neutrophils % 77 % Lymphocytes % 14 % Monocytes % 6 % Eosinophils % 1 % Basophils % 0 % Neutrophils # 5.6 (1.3-7.7) k/uL Lymphocytes # 1.0 (1.0-4.8) k/uL Monocytes # 0.5 (0-1.0) k/uL Eosinophils # 0.1 (0-0.7) k/uL Basophils # 0.0 (0-0.2) k/uL PT 12.4 H (9.0-12.0) sec INR 1.2 H (<1.2) APTT 25.6 (22.0-30.0) sec Sodium 137 (137-145) mmol/L Potassium 3.7 (3.5-5.1) mmol/L Chloride 101 (98-107) mmol/L Carbon Dioxide 24 (22-30) mmol/L Anion Gap 12 mmol/L BUN 17 (9-20) mg/dL Creatinine 0.97 (0.66-1.25) mg/dL Est GFR (CKD-EPI)AfAm >90 (>60 ml/min/1.73 sqM) Est GFR (CKD-EPI)NonAf >90 (>60 ml/min/1.73 sqM) Glucose 92 (74-99) mg/dL Calcium 9.8 (8.4-10.2) mg/dL Magnesium 1.9 (1.6-2.3) mg/dL Total Bilirubin 0.9 (0.2-1.3) mg/dL AST 27 (17-59) U/L ALT 18 (4-49) U/L Alkaline Phosphatase 37 L (38-126) U/L Troponin I (0.000-0.034) ng/mL Total Protein 6.9 (6.3-8.2) g/dL Albumin 4.5 (3.5-5.0) g/dL 06/29/22 Range/Units 19:11 WBC (3.8-10.6) k/uL RBC (4.30-5.90) m/uL Hgb (13.0-17.5) gm/dL Hct (39.0-53.0) % MCV (80.0-100.0) fL MCH (25.0-35.0) pg MCHC (31.0-37.0) g/dL RDW (11.5-15.5) % Plt Count (150-450) k/uL MPV Neutrophils % % Lymphocytes % % Monocytes % % Eosinophils % % Basophils % % Neutrophils # (1.3-7.7) k/uL Lymphocytes # (1.0-4.8) k/uL Monocytes # (0-1.0) k/uL Eosinophils # (0-0.7) k/uL Basophils # (0-0.2) k/uL PT (9.0-12.0) sec INR (<1.2) APTT (22.0-30.0) sec Sodium (137-145) mmol/L Potassium (3.5-5.1) mmol/L Chloride (98-107) mmol/L Carbon Dioxide (22-30) mmol/L Anion Gap mmol/L BUN (9-20) mg/dL Creatinine (0.66-1.25) mg/dL Est GFR (CKD-EPI)AfAm (>60 ml/min/1.73 sqM) Est GFR (CKD-EPI)NonAf (>60 ml/min/1.73 sqM) Glucose (74-99) mg/dL Calcium (8.4-10.2) mg/dL Magnesium (1.6-2.3) mg/dL Total Bilirubin (0.2-1.3) mg/dL AST (17-59) U/L ALT (4-49) U/L Alkaline Phosphatase (38-126) U/L Troponin I <0.012 (0.000-0.034) ng/mL Total Protein (6.3-8.2) g/dL Albumin (3.5-5.0) g/dL Disposition Decision Date: 06/29/22 Decision Time: 20:17 <Rigoberto Ware - Last Filed: 06/30/22 01:31> <Linda Mckeon - Last Filed: 06/30/22 13:02> Clinical Impression: Chest pain, Dizziness, Paresthesias Disposition: ADMITTED IP TO THIS [facility] Condition: Good
[2022-06-29] MEDS ORDERED: ACETAMINOPHEN TAB 325 MG TAB PO PRN (20:34)
[2022-06-29] MEDS ORDERED: NALOXONE 0.4 MG/ML 1 ML VIAL IV PRN (20:34)
[2022-06-29 20:45] LABS: INR 1.2 (<1.2); Partial Thromboplastin Time 25.6 sec (22.0-30.0); Prothrombin Time 12.4 sec (9.0-12.0)
[2022-06-29 20:49] LABS: Basophils % (A) 0 %; Eosinophils # (A) 0.1 k/uL (0-0.7); Eosinophils % (A) 1 %; HCT 49.4 % (39.0-53.0); HGB 16.7 gm/dL (13.0-17.5); Lymphocytes % (A) 14 %; MCH 29.8 pg (25.0-35.0); MCHC 33.9 g/dL (31.0-37.0); Mean Platelet Volume 7.2; Monocytes # (A) 0.5 k/uL (0-1.0); Monocytes % (A) 6 %; Neutrophils # (A) 5.6 k/uL (1.3-7.7); Neutrophils % (A) 77 %; Platelet Count 210 k/uL (150-450); RBC 5.61 m/uL (4.30-5.90); RDW 12.8 % (11.5-15.5); WBC 7.3 k/uL (3.8-10.6)
[2022-06-29 20:50] LABS: ALT 18 U/L (4-49); AST 27 U/L (17-59); African American GFR (CKD) >90 (>60 ml/min/1.73 sqM); Albumin 4.5 g/dL (3.5-5.0); Alkaline Phosphatase 37 U/L (38-126); Anion Gap 12 mmol/L; Blood Urea Nitrogen 17 mg/dL (9-20); Calcium 9.8 mg/dL (8.4-10.2); Carbon Dioxide 24 mmol/L (22-30); Chloride 101 mmol/L (98-107); Glucose 92 mg/dL (74-99); Magnesium 1.9 mg/dL (1.6-2.3); Non-African American GFR(CKD) >90 (>60 ml/min/1.73 sqM); Potassium 3.7 mmol/L (3.5-5.1); Sodium 137 mmol/L (137-145); Total Bilirubin 0.9 mg/dL (0.2-1.3); Total Protein 6.9 g/dL (6.3-8.2)
--- NOTE | 2022-06-30 00:50 | P.HPIM ---
History of Present Illness H&P Date: 06/29/22 The patient is a 46-year-old male with a PMH of pituitary adenoma 7 years ago on cabergoline who presented to the emergency room with complaints of chest pain and elevated blood pressure. The patient reports that over the past 1 month, he has been having increasingly frequent episodes of chest discomfort, shortness of breath, palpitations, and headache. He subsequently brought a blood pressure m onitor and noted that during those episodes, his BP would be significantly elevated as high as 180s to 190s systolic. Reports that episodes can occur at rest and with activity, occurring as regularly as twice a day over the past few weeks, last for as long as 40 minutes at a time, with no clear inciting event or factors. Reports that outside of these episodes, he feels well and has no complaints. The chest discomfort is described as a 8 out of 10 substernal pressure-like discomfort, nonradiating, with no alleviating or exacerbating features. Does state however that during this time, he has developed a mild fine tremor of his hands. Reports that he feels as though he is going to during these episodes and is very concerned due to his symptoms. Reports no social stressors and states that he is otherwise healthy. Denies any history of anxiety or panic disorder. Denies any additional psychiatric illness history. Reports that 2 weeks ago he did stop taking cabergoline once he started having these episodes. She does follow with an missile inspector and last saw her this past Friday at which time she ordered a brain MRI and started him on hydrocortisone. No urine or blood tests were ordered by the missile inspector as per the patient. The patient denied experiencing fever, chills, cough, weight loss, nausea, vomiting, abdominal pain, diarrhea.of note, the patient has pre sented to the emergency room multiple times in the past 2 weeks and was recently admitted on 06/14 for chest discomfort at which time an acute coronary syndrome was ruled out and the patient was discharged home. Laboratory evaluation in the emergency room was unremarkable with troponin less than 0.012. Review of systems: Pertinent positives and negatives as discussed in HPI, a complete review of systems was performed and all other systems are negative. Physical examination: General: non toxic, no distress, appears at stated age, normal weight Derm: no unusual rashes/lesions, warm Head: atraumatic, normocephalic, symmetric Eyes: EOMI, no lid lag, anicteric sclera, pupils equal round reactive to light ENT: Nose and ears atraumatic Neck: No cervical lymphadenopathy, trachea midline, supple Mouth: no lip lesion, mucus membranes moist Cardiovascular: S1S2 reg, no murmur, positive dorsalis pedis pulse bilateral, no edema Lungs: CTA bilateral, no rhonchi, no rales, no accessory muscle use Abdominal: soft, nontender to palpation, no guarding Ext: muscle strength 5 out of 5 in all 4 extremities grossly, no gross muscle atrophy, no contractures, Neuro: CN II-XI grossly intact, no gross focal neuro deficits Psych: Alert, oriented, appropriate affect Assessment/plan Episodic chest discomfort, hypertension, tachycardia -Patient's blood pressure monitor at the bedside did reveal multiple episodes of elevated BP -Concerning for possible pheochromocytoma in light of history of pituitary adenoma -Obtain serum and urine metanephrines -Endocrinology consult -Cardiac monitoring -Cardiology consulted -Trend troponin -Continue with aspirin, statin DVT prophylaxis -Heparin subq The patient is admitted with an anticipated less than 2 midnight stay for evaluation of chest pain CODE STATUS: Full Code Discussed with: Patient Anticipated discharge date: in am Anticipated discharge place: Home Past Medical History Past Medical History: GERD/Reflux Additional Past Medical History / Comment(s): IRREGULAR HEART BEAT WHEN CHILD, UTI, pituitary cyst History of Any Multi-Drug Resistant Organisms: None Reported Past Surgical History: Adenoidectomy, Tonsillectomy Additional Past Surgical History / Comment(s): cyst on the neck, TUBES IN EARS, fatty cyst on right arm Past Anesthesia/Blood Transfusion Reactions: Motion Sickness Past Psychological History: No Psychological Hx Reported Smoking Status: Never smoker Past Alcohol Use History: None Reported Past Drug Use History: None Reported - Past Family History Father Family Medical History: Chest Pain / Angina Medications and Allergies Home Medications Medication Instructions Recorded Confirmed Type Cabergoline 0.25 mg PO SA 03/14/22 06/29/22 History Aspirin EC [Ecotrin Low Dose] 81 mg PO DAILY 06/14/22 06/29/22 History Butalb/APAP/Caff 50-325-40Mg 1 tab PO BID PRN 06/14/22 06/29/22 History [Fioricet 50-325-40] Cetirizine HCl [Zyrtec] 10 mg PO DAILY 06/14/22 06/29/22 History Hydrocortisone [Cortef] 10 mg PO DAILY@1400 06/24/22 06/29/22 History Hydrocortisone [Cortef] 20 mg PO DAILY@0700 06/24/22 06/29/22 History Ibuprofen [Motrin Ib] 800 mg PO Q8H PRN 06/26/22 06/29/22 History Allergies Allergy/AdvReac Type Severity Reaction Status Date / Time No Known Allergies Allergy Verified 06/29/22 21:10 Physical Exam Vitals: Vital Signs Temp Pulse Resp BP Pulse Ox 06/29/22 21:05 64 18 132/92 98 06/29/22 19:06 98.4 F 86 18 137/83 97 Intake and Output 06/29/22 06/29/22 06/29/22 06:59 14:59 22:59 Other: Weight 77.111 kg Results CBC & Chem 7: 06/29/22 19:11 06/29/22 19:11 Labs: Abnormal Lab Results - Last 24 Hours (Table) 06/29/22 06/29/22 Range/Units 19:11 19:11 PT 12.4 H (9.0-12.0) sec INR 1.2 H (<1.2) Alkaline Phosphatase 37 L (38-126) U/L
[2022-06-30] MEDS: ATORVASTATIN 80 MG TAB PO SCH ×2 (03:26→20:45)
[2022-06-30] MEDS: ASPIRIN 81 MG PO SCH ×2 (03:26→09:27)
[2022-06-30] MEDS: HEPARIN SODIUM,PORCINE/PF 5,000 UNIT/0.5 ML SYRINGE SQ SCH ×3 (09:27→20:45)
--- NOTE | 2022-06-30 13:01 | P.PN ---
Subjective Progress Note Date: 06/30/22 Principal diagnosis: Episodic chest pains Objective - Vital Signs Vital signs: Vital Signs Temp 97.5 F L 06/30/22 09:07 Pulse 61 06/30/22 09:07 Resp 16 06/30/22 09:07 BP 105/78 06/30/22 09:07 Pulse Ox 97 06/30/22 09:07 FiO2 Intake & Output 06/29/22 06/30/22 06/30/22 18:59 06:59 18:59 Intake Total 5 Balance 5 Weight 77.111 kg Intake: IV 5 Invasive Line 1 5 Other: Voiding Method Urinal Toilet Urinal - Exam General examination - Alert and Oriented 3 in NAD Heart - + S1S2 no murmurs Lungs - Clear to auscultation Abdomen soft NT ND +ve BS Extremities - No edema BAKER CHEF - Moving all 4 extremities spontaneously Psych - Calm and cooperative - Labs CBC & Chem 7: 06/29/22 19:11 06/29/22 19:11 Labs: Abnormal Lab Results - Last 24 Hours (Table) 06/29/22 06/29/22 Range/Units 19:11 19:11 PT 12.4 H (9.0-12.0) sec INR 1.2 H (<1.2) Alkaline Phosphatase 37 L (38-126) U/L Assessment and Plan Assessment: Episodic chest discomfort, hypertension, tachycardia -Patient's blood pressure monitor at the bedside did reveal multiple episodes of elevated BP -Concerning for possible pheochromocytoma in light of history of pituitary adenoma -Obtain serum and urine metanephrines -Endocrinology consult -Cardiac monitoring -Cardiology consulted -Stress test ordered for the a.m. -Troponin negative 3 -Continue with aspirin, statin DVT prophylaxis -Heparin subq The patient is admitted with an anticipated less than 2 midnight stay for evaluation of chest pain CODE STATUS: Full Code Discussed with: Patient Anticipated discharge date: in am Anticipated discharge place: Home
--- NOTE | 2022-06-30 13:02 | P.CRDCN ---
History of Present Illness Consult date: 06/30/22 Requesting physician: Giovanny Juarez Reason for Consult (text): chest pain Chief complaint: elevated b/p, dizziness, chest pain History of present illness: This is a pleasant 46-year-old gentleman who was been seen by Dr. Blas in the office. He is actually scheduled next week for a stress test. Over the last 4 months he's been having episodes of spikes and his blood pressure with a systolic in the 210 range and diastolic he says up to 170s. He does have a history of a pituitary adenoma. He follows with an inventory control clerk who is planning to order an MRI soon. 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 Was recently admitted complains of lightheadedness and dizziness as well as the spikes in blood pressure. Echocardiogram done at that time showed normal LV systolic function with evidence of bicuspid aortic valve and trace to mild aortic stenosis. Computed tomography scan showed no evidence for aortic aneurysm. He was discharged home at that time for outpatient follow- up. He presented yesterday due to recurrent and worsening symptoms. It's been getting episodes of chest discomfort after noticing his blood pressure is elevated as well as feeling his heart racing, dizziness and tingling in his arms and legs mostly on the left side. He is also been having complaints of eye pain and difficulties with his vision. Urine and serum metanephrines have been ordered by primary. Endocrinology has been consulted. EKG on admission showed sinus mechanism with no evidence of ischemia. Troponins have been negative 3. His blood pressure has been on the lower side since admission. Since presentation he's had no complaints of chest discomfort. Past Medical History Past Medical History: GERD/Reflux Additional Past Medical History / Comment(s): IRREGULAR HEART BEAT WHEN CHILD, UTI, pituitary cyst History of Any Multi-Drug Resistant Organisms: None Reported Past Surgical History: Adenoidectomy, Tonsillectomy Additional Past Surgical History / Comment(s): cyst on the neck, TUBES IN EARS, fatty cyst on right arm Past Anesthesia/Blood Transfusion Reactions: Motion Sickness Past Psychological History: No Psychological Hx Reported Smoking Status: Never smoker Past Alcohol Use History: None Reported Past Drug Use History: None Reported - Past Family History Father Family Medical History: Chest Pain / Angina Medications and Allergies Home Medications Medication Instructions Recorded Confirmed Type Cabergoline 0.25 mg PO SA 03/14/22 06/29/22 History Aspirin EC [Ecotrin Low Dose] 81 mg PO DAILY 06/14/22 06/29/22 History Butalb/APAP/Caff 50-325-40Mg 1 tab PO BID PRN 06/14/22 06/29/22 History [Fioricet 50-325-40] Cetirizine HCl [Zyrtec] 10 mg PO DAILY 06/14/22 06/29/22 History Hydrocortisone [Cortef] 10 mg PO DAILY@1400 06/24/22 06/29/22 History Hydrocortisone [Cortef] 20 mg PO DAILY@0700 06/24/22 06/29/22 History Ibuprofen [Motrin Ib] 800 mg PO Q8H PRN 06/26/22 06/29/22 History Allergies Allergy/AdvReac Type Severity Reaction Status Date / Time No Known Allergies Allergy Verified 06/29/22 21:10 Physical Exam Vitals: Vital Signs Temp Pulse Pulse Resp BP BP Pulse Ox 06/30/22 09:07 97.5 F L 61 16 105/78 97 06/30/22 07:38 97 06/30/22 02:00 97.8 F 63 17 94/62 97 06/30/22 00:07 98.1 F 59 L 21 101/77 06/29/22 21:05 64 18 132/92 98 06/29/22 19:06 98.4 F 86 18 137/83 97 Intake and Output 06/29/22 06/30/22 06/30/22 22:59 06:59 14:59 Intake Total 5 Balance 5 Intake: IV 5 Invasive Line 1 5 Other: Voiding Method Urinal Toilet Urinal Weight 77.111 kg 77.111 kg PHYSICAL EXAMINATION: This is a 46-year-old gentleman in no apparent distress at the time of my examination. VITAL SIGNS: Blood pressure 105/78, heart rate 61, respirations 16, temp 97.5F. Patient is 97 % on room air. HEENT: Head is atraumatic, normocephalic. Pupils are equal, round. Sclerae anicteric. Conjunctivae are clear. Mucous membranes of the mouth are moist. Neck is supple. There is no elevated jugular venous pressure. No carotid bruit is heard. CHEST EXAMINATION: Clear to auscultation bilaterally. No wheezes rales or rhonchi. Respirations even and nonlabored. HEART EXAMINATION: Heart regular, positive S1 and S2. No S3. No S4. Systolic murmur at the base. ABDOMEN: Soft, nontender. Bowel sounds are heard. No organomegaly noted. EXTREMITIES: 2+ peripheral pulses with no evidence of peripheral edema and no calf tenderness noted. NEUROLOGIC EXAMINATION: Patient is awake, alert and oriented x3. Results 06/29/22 19:11 06/29/22 19:11 Cardiac Enzymes 06/29/22 06/29/22 06/29/22 Range/Units 19:11 19:11 21:36 AST 27 (17-59) U/L Troponin I <0.012 <0.012 (0.000-0.034) ng/mL 06/30/22 Range/Units 01:21 AST (17-59) U/L Troponin I <0.012 (0.000-0.034) ng/mL Coagulation 06/29/22 Range/Units 19:11 PT 12.4 H (9.0-12.0) sec APTT 25.6 (22.0-30.0) sec CBC 06/29/22 Range/Units 19:11 WBC 7.3 (3.8-10.6) k/uL RBC 5.61 (4.30-5.90) m/uL Hgb 16.7 (13.0-17.5) gm/dL Hct 49.4 (39.0-53.0) % Plt Count 210 (150-450) k/uL Comprehensive Metabolic Panel 06/29/22 Range/Units 19:11 Sodium 137 (137-145) mmol/L Potassium 3.7 (3.5-5.1) mmol/L Chloride 101 (98-107) mmol/L Carbon Dioxide 24 (22-30) mmol/L BUN 17 (9-20) mg/dL Creatinine 0.97 (0.66-1.25) mg/dL Glucose 92 (74-99) mg/dL Calcium 9.8 (8.4-10.2) mg/dL AST 27 (17-59) U/L ALT 18 (4-49) U/L Alkaline Phosphatase 37 L (38-126) U/L Total Protein 6.9 (6.3-8.2) g/dL Albumin 4.5 (3.5-5.0) g/dL Current Medications Generic Name Dose Route Start Last Admin Trade Name Freq PRN Reason Stop Dose Admin Acetaminophen 650 mg 06/29/22 20:34 Acetaminophen Tab 325 Mg Tab PO Q6HR PRN Mild Pain or Fever > 100.5 Aspirin 81 mg 06/30/22 00:43 06/30/22 09:27 Aspirin 81 Mg PO 81 mg DAILY EDWARD Administration Atorvastatin Calcium 80 mg 06/30/22 00:45 06/30/22 03:26 Atorvastatin 80 Mg Tab PO 80 mg HS EDWARD Administration Heparin Sodium (Porcine) 5,000 unit 06/30/22 08:00 06/30/22 09:27 Heparin Sodium,Porcine/Pf 5,000 Unit/0.5 Ml Syringe SQ 5,000 unit Q8HR EDWARD Administration Naloxone HCl 0.2 mg 06/29/22 20:34 Naloxone 0.4 Mg/Ml 1 Ml Vial IV Q2M PRN Opioid Reversal Intake and Output 06/29/22 06/30/22 06/30/22 22:59 06:59 14:59 Intake Total 5 Balance 5 Intake: IV 5 Invasive Line 1 5 Other: Voiding Method Urinal Toilet Urinal Weight 77.111 kg 77.111 kg 06/29/22 19:11 06/29/22 19:11 EKG Interpretations (text) Sinus rhythm Assessment and Plan Assessment: #1 episodes of sudden elevation of blood pressure, dizziness, chest pain, palpitations and shortness of breath concerning for pheochromocytoma #2 evidence of bicuspid aortic valve #3 history of pituitary adenoma Plan: From cardiology's perspective will schedule the patient for a stress e chocardiogram to be done tomorrow. Further recommendations to follow depending on clinical course and stress test findings. ALUMNI RELATIONS COORDINATOR note has been reviewed, I agree with a documented findings and plan of care. Patient was seen and examined.
--- NOTE | 2022-07-01 06:30 | P.PN ---
Subjective Progress Note Date: 07/01/22 Principal diagnosis: Chest discomfort This is a 46-year-old gentleman who was admitted to the hospital with a chest discomfort and ruled out for acute coronary event. He was seen this morning. He is chest pain-free. His vitals are stable beside marginally low blood pressure. The patient is in process of having stress echocardiogram later on today. We'll follow-up with the patient after that. If the stress test is unremarkable he potentially can be discharged Objective - Vital Signs Vital signs: Vital Signs Temp 97.6 F 07/01/22 02:00 Pulse 58 L 07/01/22 02:00 Resp 14 06/30/22 20:00 BP 103/68 07/01/22 02:00 Pulse Ox 97 07/01/22 02:00 FiO2 Intake & Output 06/30/22 06/30/22 07/01/22 06:59 18:59 06:59 Intake Total 483 Output Total 1 Balance 482 Weight 77.111 kg Intake: IV 5 Invasive Line 1 5 Oral 478 Output: Urine 1 Other: Voiding Method Urinal Toilet Toilet Urinal Urinal # Voids 1 - Constitutional General appearance: Present: no acute distress - Respiratory Respiratory: bilateral: CTA - Cardiovascular Rhythm: regular Heart sounds: normal: S1, S2 - Labs CBC & Chem 7: 06/29/22 19:11 06/29/22 19:11 Assessment and Plan Assessment: Assessment #1 atypical chest discomfort Plan #1 acute coronary event was ruled out #2 follow-up with the patient after the stress test
[2022-07-01 07:49] VITALS: BP 105/76; PULSE 56; RESP 18; TEMP 98.1
[2022-07-01] MEDS: ASPIRIN 81 MG PO SCH (08:19)
[2022-07-01] MEDS: HEPARIN SODIUM,PORCINE/PF 5,000 UNIT/0.5 ML SYRINGE SQ SCH (08:38)
[2022-07-01] MEDS ORDERED: BUTALB/APAP/CAFF 50-325-40MG TAB PO PRN (09:04)
[2022-07-01] MEDS ORDERED: IBUPROFEN 800 MG TAB PO PRN (09:04)
--- NOTE | 2022-07-01 10:22 | CA ---
Stress Echo Report Joey Tan Age: 46 Gender: M : 1975 Exam Date: 07/01/2022 08:58 Exam Location: [facility] Stress Ht (in): 68 Wt (lb): 170 Ordering Physician: Meredith Emmanuel Referring Physician: Jenny Griffin,, Litigation Docket Manager: Brandee Polo RDCS Technologist Procedure CPT: Indication: recurrent chest pain ICD-9 Codes: Rhythm: Patient History: Fm hx Cardiac Medications: Medications in past 24 hours: Contrast: Stress Results Protocol: Brian Total dose(mL): Exercise Duration (min:sec): [address] Depression (mm): Angina Score: Lucas Score: METS: 11.9 Resting HR: 82 Resting BP: 111 / 79 Peak HR: 156 Peak BP: 121 / 53 Max Predicted HR: 175 89 % Max Predicted HR Target HR: 149 Double Product: [id number] Stress Summary: BP Response: Reason for Termination: Pt reached target hr. Cardiac Symptoms: no symptoms ECG Analysis Resting ECG: Stress ECG: Arrhythmia: Echo Analysis Resting Echo: Peak Echo Analysis: MEASUREMENTS (Male/Female) Normal Values CONCLUSIONS Excellent exercise tolerance Normal EKG in response to exercise Normal echocardiogram in response to exercise Dr. Levar Gustafson MD (Electronically Signed) Final Date: 01 July 2022 10:20
--- NOTE | 2022-07-01 11:16 | P.DS ---
Providers Date of admission: 06/29/22 21:07 Expected date of discharge: 07/01/22 Attending physician: Giovanny Juarez MD Consults: 06/29/22 20:34 Consult Physician Routine Consulting Provider: Levar Gustafson Consult Reason/Comments: chest pain Do you want consulting provider notified?: Yes, Notify in am 06/30/22 00:49 Consult Physician Urgent Consulting Provider: Rosmery Clarke Consult Reason/Comments: suspected pheochromocytoma Do you want consulting provider notified?: Yes Primary care physician: Armen Bartonqvi Hospital Course: Discharge Diagnosis: Episodic chest discomfort hypertension tachycardia likely due to anxiety: Need to rule out pheochromocytoma Pituitary adenoma Adrenal insufficiency Hospital Course: Patient is a 46-year-old male with a past medical history pituitary adenoma and adrenal insufficiency who presents to the ED with episodes of chest discomfort hypertension and tachycardia. Patient was seen by cardiology. He had a stress test done that was negative. His troponins were negative. Patient cleared by cardiology from their standpoint. Patient also had labs done to rule out pheochromocytoma. This is a send out lab. I discussed with patient's virtual assistant who will follow-up on this blood work. Per nurse patient would check his blood pressure multiple times with his blood pressure cuff that he brought from home while he was in the hospital. I believe his symptoms are likely due to anxiety. Patient virtual assistant did start him on Prozac in the outpatient setting. However patient is hesitant to take it because it interacts with ibuprofen. Patient states that only ibuprofen helps with his headache. Patient instructed to follow with his primary care doctor to manage his anxiety. Patient seen and examined at bedside.[] Vital signs reviewed and stable. General: [non toxic], [no distress], [appears at stated age] Derm: [warm], [dry] Head: [atraumatic], [normocephalic], [symmetric] Eyes: [EOMI], [no lid lag], [anicteric sclera] Mouth: [no lip lesion], [mucus membranes moist] Cardiovascular: [S1S2 reg], [no murmur], [positive posterior tibial pulse bilateral], Lungs: [CTA bilateral], [no rhonchi, no rales] , [no accessory muscle use] Abdominal: [soft], [ nontender to palpation], [no guarding], [no appreciable organomegaly] Ext: [no gross muscle atrophy], [no edema], [no contractures] Neuro: [ CN II-XI grossly intact], [no focal neuro deficits] Psych: [Alert], [oriented], [appropriate affect] A total of [33] minutes of time were spent preparing this complex discharge summary . Patient Condition at Discharge: Good Plan - Discharge Summary New Discharge Prescriptions: Continue Cabergoline 0.25 mg PO SA Cetirizine HCl [Zyrtec] 10 mg PO DAILY Butalb/APAP/Caff 50-325-40Mg [Fioricet 50-325-40] 1 tab PO BID PRN PRN Reason: Migraine Headache Aspirin EC [Ecotrin Low Dose] 81 mg PO DAILY Hydrocortisone [Cortef] 20 mg PO DAILY@0700 Hydrocortisone [Cortef] 10 mg PO DAILY@1400 Ibuprofen [Motrin Ib] 800 mg PO Q8H PRN PRN Reason: Pain Discharge Medication List Cabergoline 0.25 mg PO SA 03/14/22 [History] Aspirin EC [Ecotrin Low Dose] 81 mg PO DAILY 06/14/22 [History] Butalb/APAP/Caff 50-325-40Mg [Fioricet 50-325-40] 1 tab PO BID PRN 06/14/22 [History] Cetirizine HCl [Zyrtec] 10 mg PO DAILY 06/14/22 [History] Hydrocortisone [Cortef] 10 mg PO DAILY@1400 06/24/22 [History] Hydrocortisone [Cortef] 20 mg PO DAILY@0700 06/24/22 [History] Ibuprofen [Motrin Ib] 800 mg PO Q8H PRN 06/26/22 [History] Follow up Appointment(s)/Referral(s): Armen Langford MD [Primary Care Provider] - 1-2 days Rosmery Clarke MD [STAFF PHYSICIAN] - 1 Week Discharge Disposition: HOME SELF-CARE
[2022-07-01] MEDS ORDERED: HYDROCORTISONE 10 MG TAB PO SCH (14:00)
[2022-07-02] MEDS ORDERED: HYDROCORTISONE 20 MG TAB PO SCH (07:00)
[2022-07-02] MEDS ORDERED: LORATADINE 10 MG TAB PO SCH (09:00)
[2022-07-02] MEDS ORDERED: ASPIRIN 81 MG PO SCH (09:00)
[2022-07-03 09:52] LABS: Metanephrines 24 Hour,Urine 145 ug/day (52-341); Normetanephrine 24 Hour,Urine 182 ug/day (88-444); Total Metanephrines 24 Hour,Ur 327 ug/day (140-785); Urine Creatinine, 24 Hr 2.6 gm/24h (1.0-2.0)
== END 2022-07-01 12:00 | disposition home or self-care (01) ==
LOC: EC 19:05 → 6NMEDSUR 21:07
PROVIDERS: ADMIT Internal Medicine; ATTEND Internal Medicine
DX: R07.89 Other chest pain (principal); I10 Essential (primary) hypertension; R00.0 Tachycardia, unspecified; E27.40 Unspecified adrenocortical insufficiency; K21.9 Gastro-esophageal reflux disease without esophagitis; D35.2 Benign neoplasm of pituitary gland; Q23.1 Congenital insufficiency of aortic valve; Z79.82 Long term (current) use of aspirin
CPT/HCPCS: 96372 ×2; 99285; 36415; 94760; 93005; 93351; 83835 ×2; 80053; 83735; 84484 ×2; 85025; 85610; 85730; G0378 ×3; J1644

== ENCOUNTER → 2023-12-11 | Outpatient (CLI) | payer BC ==
[2023-12-11 22:43] LABS: Clam IgE <0.10 kU/L; Codfish IgE <0.10 kU/L; Egg White IgE <0.10 kU/L; Peanut IgE <0.10 kU/L; Scallop IgE <0.10 kU/L; Shrimp IgE <0.10 kU/L; Soybean IgE <0.10 kU/L; Walnut IgE (Food) <0.10 kU/L
[2023-12-12 11:52] LABS: Beef IgE <0.10 kU/L (<0.10); Beef IgE Class CLASS 0; Gluten IgE Class CLASS 0; Pork IgE Class CLASS 0; Yeast Bakers/Brew IgE <0.10 kU/L (<0.10); Yeast Bakers/Brew IgE Class CLASS 0
[2023-12-12 11:53] LABS: Avocado Class CLASS 0; Banana IgE Class CLASS 0; Chicken IgE Class CLASS 0; Hazelnut IgE <0.10 kU/L (<0.10); Hazelnut IgE Class CLASS 0; Kiwi IgE <0.10 kU/L (<0.10); Kiwi IgE Class CLASS 0; Latex IgE Class CLASS 0
== END | disposition home or self-care (01) ==
LOC: LABWHC1 07:27
PROVIDERS: ATTEND Otolaryngology
DX: L50.0 Allergic urticaria (principal)
CPT/HCPCS: 36415; 82785; 86001; 86003

== ENCOUNTER → 2025-02-16 | Outpatient (CLI) | payer BC ==
--- NOTE | 2025-02-16 21:54 | CT ---
EXAMINATION TYPE: CT abdomen pelvis w con DATE OF EXAM: 02/16/2025 COMPARISON: CTA aorta June 15, 2022 CLINICAL INDICATION: Male, 49 years old with history of R10.32 LLQ PAIN, LLQ pain, left groin pain, TECHNIQUE: CT scan of the abdomen and pelvis is performed with IV Contrast, patient injected with 100 ml mL of I sovue 300., (none if empty) Oral contrast used: with Oral Contrast (none if empty) CT DLP: 719.7 mGycm, Automated exposure control for dose reduction was used. FINDINGS: LUNG BASES: No significant abnormality is appreciated. LIVER/GB: Liver is heterogeneously hypodense consistent with diffuse fatty infiltrative hepatocellula r disease. PANCREAS: Mild generalized atrophy redemonstrated. SPLEEN: No significant abnormality is seen. ADRENALS: No significant abnormality is seen. KIDNEYS: No significant abnormality is seen. BOWEL: Oral contrast reaches the rectum. No abnormal small or large bowel dilatation is seen. No sign ificant colonic diverticulosis or CT evidence for acute diverticulitis. Appendix within normal limits from the cecum. PROSTATE/SEMINAL VESICLES: Prostate gland upper limits of normal in size. LYMPH NODES: No greater than 1cm abdominal or pelvic lymph nodes are appreciated. OSSEOUS STRUCTURES: Mild multilevel disc space narrowing with relative sparing of L4-L5 level. OTHER: No significant additional abnormality is seen. IMPRESSION: No significant finding is seen to account for patient's clinical symptoms. [facility], , 02/16/2025 9:51 PM
== END | disposition home or self-care (01) ==
LOC: RADCTMAIN 15:37
PROVIDERS: ATTEND Family Medicine
DX: R10.32 Left lower quadrant pain (principal)
CPT/HCPCS: 74177; Q9967